=== PATIENT | male | born 1950 | race Caucasian/White ===

== ENCOUNTER 2020-03-18 06:46 | Outpatient (REF) | payer MEDICARE, SELFPAY | END 2020-03-18 06:47 | disposition home or self-care (01) | LOC: HO.MMNH1L 06:46 | PROVIDERS: Visit Provider Family Medicine | DX: T84.54XD Infection and inflammatory reaction due to internal left knee prosthesis, subsequent encounter (principal) ==

== ENCOUNTER 2020-03-19 07:06 | Outpatient (REF) | payer SELFPAY ==
[2020-03-19 07:14] LABS: MANUAL DIFF FLAG NO
[2020-03-19 07:33] LABS: Basophils Percent Auto 0.6 % (0-2); Eosinophils Absolute Auto 0.2 X10*3/uL (0.0-0.4); Hematocrit 38.7 % (42-52); Hemoglobin 12.8 g/dl (14.0-18.0); Imm Gran Abs Auto 0.03 X10*3/uL (0.00-0.03); Imm Gran Pct Auto 0.6 % (0.0-0.4); Lymphocytes Absolute Auto 0.9 X10*3/uL (1.2-4.9); Lymphocytes Percent Auto 17.1 % (20-40); Mean Corpuscular HGB Conc 33.1 g/dl (31.0-36.0); Mean Corpuscular Hemoglobin 33.2 pg (27.0-33.0); Mean Corpuscular Volume 100.3 fL (80-98); Mean Platelet Volume 10.7 fL (9.4-12.4); Monocytes Absolute Auto 0.5 X10*3/uL (0.1-1.2); Monocytes Percent Auto 9.6 % (2-11); Neutrophils Absolute Auto 3.5 X10*3/uL (2.0-8.3); Neutrophils Percent Auto 68.1 % (45-73); Platelet Count 214 X10*3/uL (160-400); Red Blood Count 3.86 X10*6/uL (4.60-5.80); Red Cell Distribution Width 12.4 % (11.0-16.0); White Blood Count 5.2 X10*3/uL (4.8-10.8)
[2020-03-19 08:04] LABS: Alanine Aminotransferase 9 U/L (0-40); Albumin Level 3.8 g/dL (3.5-5.0); Alkaline Phosphatase 100 U/L (39-117); Anion Gap 11 (12-20); Aspartate Amino Transferase 12 U/L (5-37); Bilirubin Total 0.3 mg/dL (0.0-1.0); Blood Urea Nitrogen 12 mg/dL (9-16); Calcium 8.7 mg/dL (8.4-10.2); Carbon Dioxide 31 mmol/L (22-29); Chloride 102 mmol/L (96-108); Estimated Glomerular Filt Rate > 60; Glucose Random 83 mg/dL (60-115); Potassium 4.5 mmol/l (3.3-5.1); Sodium 139 mmol/L (135-145); Total Protein 5.9 g/dL (6.5-8.0)
[2020-03-19 08:48] LABS: Vancomycin Trough 23.3 mcg/mL (10.0-20.0)
== END 2020-03-19 07:07 | disposition home or self-care (01) ==
LOC: HO.MMNH1L 07:06
PROVIDERS: Visit Provider Family Medicine
DX: T84.54XD Infection and inflammatory reaction due to internal left knee prosthesis, subsequent encounter (principal)
CPT/HCPCS: 36415; 80053; 80202; 85025

== ENCOUNTER 2020-03-22 07:52 | Outpatient (REF) | payer SELFPAY ==
[2020-03-22 19:54] LABS: Vancomycin Trough 17.8 mcg/mL (10.0-20.0)
== END 2020-03-22 07:53 | disposition home or self-care (01) ==
LOC: HO.MMNH1L 07:52
PROVIDERS: Visit Provider Family Medicine
DX: I10 Essential (primary) hypertension (principal)
CPT/HCPCS: 36415; 80202

== ENCOUNTER 2020-03-24 06:56 | Outpatient (REF) | payer SELFPAY ==
[2020-03-24 07:35] LABS: Basophils Percent Auto 0.3 % (0-2); Eosinophils Absolute Auto 0.3 X10*3/uL (0.0-0.4); Eosinophils Percent Auto 3.6 % (0-4); Hematocrit 39.4 % (42-52); Hemoglobin 13.1 g/dl (14.0-18.0); Imm Gran Abs Auto 0.06 X10*3/uL (0.00-0.03); Imm Gran Pct Auto 0.8 % (0.0-0.4); Lymphocytes Absolute Auto 0.9 X10*3/uL (1.2-4.9); Lymphocytes Percent Auto 12.9 % (20-40); MANUAL DIFF FLAG NO; Mean Corpuscular HGB Conc 33.2 g/dl (31.0-36.0); Mean Corpuscular Volume 99.2 fL (80-98); Mean Platelet Volume 10.6 fL (9.4-12.4); Monocytes Absolute Auto 0.6 X10*3/uL (0.1-1.2); Monocytes Percent Auto 8.9 % (2-11); Neutrophils Absolute Auto 5.3 X10*3/uL (2.0-8.3); Neutrophils Percent Auto 73.5 % (45-73); Platelet Count 182 X10*3/uL (160-400); Red Blood Count 3.97 X10*6/uL (4.60-5.80); Red Cell Distribution Width 12.3 % (11.0-16.0); White Blood Count 7.2 X10*3/uL (4.8-10.8)
[2020-03-24 08:03] LABS: Alanine Aminotransferase 10 U/L (0-40); Albumin Level 3.9 g/dL (3.5-5.0); Alkaline Phosphatase 99 U/L (39-117); Anion Gap 13 (12-20); Aspartate Amino Transferase 13 U/L (5-37); Bilirubin Total 0.4 mg/dL (0.0-1.0); Blood Urea Nitrogen 13 mg/dL (9-16); Calcium 8.8 mg/dL (8.4-10.2); Carbon Dioxide 31 mmol/L (22-29); Chloride 102 mmol/L (96-108); Estimated Glomerular Filt Rate > 60; Glucose Random 76 mg/dL (60-115); Potassium 4.6 mmol/l (3.3-5.1); Sodium 141 mmol/L (135-145); Total Protein 6.1 g/dL (6.5-8.0)
[2020-03-24 08:07] LABS: Vancomycin Trough 22.5 mcg/mL (10.0-20.0)
== END 2020-03-24 06:57 | disposition home or self-care (01) ==
LOC: HO.MMNH1L 06:56
PROVIDERS: Visit Provider Family Medicine
DX: T84.54XD Infection and inflammatory reaction due to internal left knee prosthesis, subsequent encounter (principal); Z51.81 Encounter for therapeutic drug level monitoring
CPT/HCPCS: 36415; 80053; 80202; 85025

== ENCOUNTER 2020-04-03 07:25 | Outpatient (REF) | payer MEDICARE, SELFPAY ==
[2020-04-03 19:31] LABS: MANUAL DIFF FLAG NO
[2020-04-03 19:37] LABS: Basophils Absolute Auto 0.1 X10*3/uL (0.0-0.2); Basophils Percent Auto 0.8 % (0-2); Eosinophils Absolute Auto 0.2 X10*3/uL (0.0-0.4); Hemoglobin 13.1 g/dl (14.0-18.0); Imm Gran Abs Auto 0.04 X10*3/uL (0.00-0.03); Imm Gran Pct Auto 0.7 % (0.0-0.4); Lymphocytes Percent Auto 16.5 % (20-40); Mean Corpuscular HGB Conc 32.8 g/dl (31.0-36.0); Mean Corpuscular Hemoglobin 32.2 pg (27.0-33.0); Mean Corpuscular Volume 98.3 fL (80-98); Mean Platelet Volume 10.3 fL (9.4-12.4); Monocytes Absolute Auto 0.7 X10*3/uL (0.1-1.2); Monocytes Percent Auto 12.1 % (2-11); Neutrophils Absolute Auto 3.9 X10*3/uL (2.0-8.3); Neutrophils Percent Auto 65.9 % (45-73); Platelet Count 259 X10*3/uL (160-400); Red Blood Count 4.07 X10*6/uL (4.60-5.80); Red Cell Distribution Width 11.8 % (11.0-16.0); White Blood Count 5.9 X10*3/uL (4.8-10.8)
[2020-04-03 20:03] LABS: Alanine Aminotransferase 8 U/L (0-40); Albumin Level 3.9 g/dL (3.5-5.0); Alkaline Phosphatase 103 U/L (39-117); Anion Gap 15 (12-20); Aspartate Amino Transferase 15 U/L (5-37); Bilirubin Total 0.4 mg/dL (0.0-1.0); Blood Urea Nitrogen 13 mg/dL (9-16); Calcium 8.7 mg/dL (8.4-10.2); Carbon Dioxide 25 mmol/L (22-29); Chloride 103 mmol/L (96-108); Estimated Glomerular Filt Rate > 60; Glucose Random 87 mg/dL (60-115); Potassium 5.1 mmol/l (3.3-5.1); Sodium 138 mmol/L (135-145); Total Protein 6.2 g/dL (6.5-8.0)
[2020-04-03 20:07] LABS: Vancomycin Trough 17.3 mcg/mL (10.0-20.0)
== END 2020-04-03 07:26 | disposition home or self-care (01) ==
LOC: HO.MMNH1L 07:25
PROVIDERS: Visit Provider Family Medicine
DX: Z51.81 Encounter for therapeutic drug level monitoring (principal); Z79.899 Other long term (current) drug therapy
CPT/HCPCS: 36415; 80053; 80202; 85025

== ENCOUNTER 2020-04-06 05:33 | Outpatient (REF) | payer SELFPAY ==
[2020-04-06 19:25] LABS: MANUAL DIFF FLAG NO
[2020-04-06 19:27] LABS: Basophils Absolute Auto 0.1 X10*3/uL (0.0-0.2); Basophils Percent Auto 0.8 % (0-2); Eosinophils Absolute Auto 0.2 X10*3/uL (0.0-0.4); Eosinophils Percent Auto 3.3 % (0-4); Hematocrit 39.2 % (42-52); Imm Gran Abs Auto 0.03 X10*3/uL (0.00-0.03); Imm Gran Pct Auto 0.5 % (0.0-0.4); Mean Corpuscular HGB Conc 33.2 g/dl (31.0-36.0); Mean Corpuscular Hemoglobin 32.7 pg (27.0-33.0); Mean Corpuscular Volume 98.7 fL (80-98); Monocytes Absolute Auto 0.7 X10*3/uL (0.1-1.2); Monocytes Percent Auto 10.6 % (2-11); Neutrophils Absolute Auto 4.2 X10*3/uL (2.0-8.3); Neutrophils Percent Auto 68.8 % (45-73); Platelet Count 250 X10*3/uL (160-400); Red Blood Count 3.97 X10*6/uL (4.60-5.80); Red Cell Distribution Width 11.8 % (11.0-16.0); White Blood Count 6.1 X10*3/uL (4.8-10.8)
[2020-04-06 20:02] LABS: Alanine Aminotransferase 7 U/L (0-40); Albumin Level 3.9 g/dL (3.5-5.0); Alkaline Phosphatase 99 U/L (39-117); Anion Gap 13 (12-20); Aspartate Amino Transferase 12 U/L (5-37); Bilirubin Total 0.2 mg/dL (0.0-1.0); Blood Urea Nitrogen 16 mg/dL (9-16); Calcium 8.9 mg/dL (8.4-10.2); Carbon Dioxide 29 mmol/L (22-29); Chloride 103 mmol/L (96-108); Estimated Glomerular Filt Rate > 60; Glucose Random 102 mg/dL (60-115); Potassium 5.1 mmol/l (3.3-5.1); Sodium 140 mmol/L (135-145); Total Protein 6.2 g/dL (6.5-8.0)
[2020-04-06 20:07] LABS: Vancomycin Trough 17.5 mcg/mL (10.0-20.0)
== END 2020-04-06 05:34 | disposition home or self-care (01) ==
LOC: HO.MMNH1L 05:33
PROVIDERS: Visit Provider Family Medicine
DX: I10 Essential (primary) hypertension (principal)
CPT/HCPCS: 36415; 80053; 80202; 85025

== ENCOUNTER 2020-04-07 06:58 | Outpatient (REF) | payer SELFPAY ==
[2020-04-07 07:04] LABS: MANUAL DIFF FLAG NO
[2020-04-07 07:37] LABS: Basophils Percent Auto 0.6 % (0-2); Eosinophils Absolute Auto 0.2 X10*3/uL (0.0-0.4); Eosinophils Percent Auto 4.4 % (0-4); Hematocrit 38.1 % (42-52); Hemoglobin 12.4 g/dl (14.0-18.0); Imm Gran Abs Auto 0.03 X10*3/uL (0.00-0.03); Imm Gran Pct Auto 0.6 % (0.0-0.4); Lymphocytes Absolute Auto 0.9 X10*3/uL (1.2-4.9); Lymphocytes Percent Auto 17.9 % (20-40); Mean Corpuscular HGB Conc 32.5 g/dl (31.0-36.0); Mean Corpuscular Hemoglobin 32.3 pg (27.0-33.0); Mean Corpuscular Volume 99.2 fL (80-98); Mean Platelet Volume 10.4 fL (9.4-12.4); Monocytes Absolute Auto 0.5 X10*3/uL (0.1-1.2); Monocytes Percent Auto 10.4 % (2-11); Neutrophils Absolute Auto 3.3 X10*3/uL (2.0-8.3); Neutrophils Percent Auto 66.1 % (45-73); Platelet Count 226 X10*3/uL (160-400); Red Blood Count 3.84 X10*6/uL (4.60-5.80); Red Cell Distribution Width 11.8 % (11.0-16.0)
[2020-04-07 07:58] LABS: Alanine Aminotransferase 6 U/L (0-40); Albumin Level 3.7 g/dL (3.5-5.0); Alkaline Phosphatase 88 U/L (39-117); Anion Gap 14 (12-20); Aspartate Amino Transferase 12 U/L (5-37); Bilirubin Total 0.2 mg/dL (0.0-1.0); Blood Urea Nitrogen 14 mg/dL (9-16); Calcium 8.9 mg/dL (8.4-10.2); Carbon Dioxide 29 mmol/L (22-29); Chloride 103 mmol/L (96-108); Estimated Glomerular Filt Rate > 60; Glucose Random 82 mg/dL (60-115); Sodium 141 mmol/L (135-145); Total Protein 5.9 g/dL (6.5-8.0)
[2020-04-07 08:21] LABS: Vancomycin Trough 18.1 mcg/mL (10.0-20.0)
== END 2020-04-07 06:59 | disposition home or self-care (01) ==
LOC: HO.MMNH1L 06:58
PROVIDERS: Visit Provider Family Medicine
DX: E78.5 Hyperlipidemia, unspecified (principal); I10 Essential (primary) hypertension; Z79.899 Other long term (current) drug therapy; A41.89 Other specified sepsis
CPT/HCPCS: 36415; 80053; 80202; 85025

== ENCOUNTER 2020-04-08 07:30 | Outpatient (REF) | payer SELFPAY ==
[2020-04-08 19:26] LABS: MANUAL DIFF FLAG NO
[2020-04-08 19:27] LABS: Basophils Percent Auto 0.7 % (0-2); Eosinophils Absolute Auto 0.2 X10*3/uL (0.0-0.4); Hematocrit 37.9 % (42-52); Hemoglobin 12.6 g/dl (14.0-18.0); Imm Gran Abs Auto 0.04 X10*3/uL (0.00-0.03); Imm Gran Pct Auto 0.7 % (0.0-0.4); Lymphocytes Percent Auto 16.4 % (20-40); Mean Corpuscular HGB Conc 33.2 g/dl (31.0-36.0); Mean Corpuscular Hemoglobin 32.7 pg (27.0-33.0); Mean Corpuscular Volume 98.4 fL (80-98); Mean Platelet Volume 10.3 fL (9.4-12.4); Monocytes Absolute Auto 0.7 X10*3/uL (0.1-1.2); Monocytes Percent Auto 10.8 % (2-11); Neutrophils Absolute Auto 4.1 X10*3/uL (2.0-8.3); Neutrophils Percent Auto 67.4 % (45-73); Platelet Count 234 X10*3/uL (160-400); Red Blood Count 3.85 X10*6/uL (4.60-5.80); Red Cell Distribution Width 11.9 % (11.0-16.0)
[2020-04-08 19:55] LABS: Alanine Aminotransferase 6 U/L (0-40); Albumin Level 3.9 g/dL (3.5-5.0); Alkaline Phosphatase 95 U/L (39-117); Anion Gap 14 (12-20); Aspartate Amino Transferase 12 U/L (5-37); Bilirubin Total 0.2 mg/dL (0.0-1.0); Blood Urea Nitrogen 16 mg/dL (9-16); Calcium 8.4 mg/dL (8.4-10.2); Carbon Dioxide 29 mmol/L (22-29); Chloride 103 mmol/L (96-108); Estimated Glomerular Filt Rate > 60; Glucose Random 94 mg/dL (60-115); Potassium 4.7 mmol/l (3.3-5.1); Sodium 141 mmol/L (135-145)
[2020-04-08 20:11] LABS: Vancomycin Trough 32.9 mcg/mL (10.0-20.0)
== END 2020-04-08 07:31 | disposition home or self-care (01) ==
LOC: HO.MMNH1L 07:30
PROVIDERS: Visit Provider Family Medicine
DX: Z79.899 Other long term (current) drug therapy (principal); T84.59XA Infection and inflammatory reaction due to other internal joint prosthesis, initial encounter; Z96.659 Presence of unspecified artificial knee joint
CPT/HCPCS: 36415; 80053; 80202; 85025; 99212

== ENCOUNTER 2020-04-09 10:53 | Outpatient (REF) | payer SELFPAY ==
[2020-04-09 11:49] LABS: Vancomycin Trough 12.4 mcg/mL (10.0-20.0)
== END 2020-04-09 10:54 | disposition home or self-care (01) ==
LOC: HO.MMNH1L 10:53
PROVIDERS: Visit Provider Family Medicine
DX: A41.9 Sepsis, unspecified organism (principal); Z79.2 Long term (current) use of antibiotics
CPT/HCPCS: 80202

== ENCOUNTER 2020-04-12 | Outpatient (REF) | payer MEDICARE, SELFPAY ==
[2020-04-12 08:43] LABS: Hematocrit 38.4 % (42-52); Hemoglobin 12.7 g/dl (14.0-18.0); Mean Corpuscular HGB Conc 33.1 g/dl (31.0-36.0); Mean Corpuscular Hemoglobin 32.7 pg (27.0-33.0); Mean Platelet Volume 10.6 fL (9.4-12.4); Platelet Count 187 X10*3/uL (160-400); Red Blood Count 3.88 X10*6/uL (4.60-5.80); Red Cell Distribution Width 11.8 % (11.0-16.0); White Blood Count 6.4 X10*3/uL (4.8-10.8)
[2020-04-12 10:09] LABS: Anion Gap 14 (12-20); Blood Urea Nitrogen 11 mg/dL (9-16); Calcium 8.4 mg/dL (8.4-10.2); Carbon Dioxide 29 mmol/L (22-29); Chloride 100 mmol/L (96-108); Estimated Glomerular Filt Rate > 60; Glucose Random 72 mg/dL (60-115); Potassium 4.2 mmol/l (3.3-5.1); Sodium 139 mmol/L (135-145)
== END 2020-04-12 00:01 | disposition home or self-care (01) ==
LOC: HO.MMNH1L
PROVIDERS: Visit Provider Family Medicine
DX: I10 Essential (primary) hypertension (principal); R56.9 Unspecified convulsions; M00.9 Pyogenic arthritis, unspecified
CPT/HCPCS: 36415; 80048; 85027

== ENCOUNTER 2020-05-06 09:43 | Outpatient (REF) | payer MEDICARE, SELFPAY ==
--- NOTE | 2020-05-06 09:44 | XR_ITS ---
EXAMINATION: XR KNEE, BILATERAL XR KNEE, LEFT CLINICAL INFORMATION: Infection and inflammatory reaction due to other internal joint prosthesis. COMPARISON: 02/24/2020 TECHNIQUE: AP standing view of both knees. Lateral and sunrise views of the left knee. FINDINGS: As before, left total knee prosthesis has been removed with antibiotic cement in place at the distal femur/proximal tibia. Alignment is unchanged. No acute fracture or malalignment. Soft tissue swelling surrounds the knee. No significant joint effusion. Evaluation of the patella is limited. The single view of the right knee shows no fracture or subluxation. Moderate medial compartment joint space narrowing. XR/XR knee standing BI IMPRESSION: Total knee prosthesis removal with antibiotic spacer in place. Unchanged alignment. Soft tissue swelling.
--- NOTE | 2020-05-06 09:44 | XR_ITS ---
EXAMINATION: XR KNEE, BILATERAL XR KNEE, LEFT CLINICAL INFORMATION: Infection and inflammatory reaction due to other internal joint prosthesis. COMPARISON: 02/24/2020 TECHNIQUE: AP standing view of both knees. Lateral and sunrise views of the left knee. FINDINGS: As before, left total knee prosthesis has been removed with antibiotic cement in place at the distal femur/proximal tibia. Alignment is unchanged. No acute fracture or malalignment. Soft tissue swelling surrounds the knee. No significant joint effusion. Evaluation of the patella is limited. The single view of the right knee shows no fracture or subluxation. Moderate medial compartment joint space narrowing. XR/XR knee LT 2V IMPRESSION: Total knee prosthesis removal with antibiotic spacer in place. Unchanged alignment. Soft tissue swelling.
--- NOTE | 2020-05-06 10:12 | ECG_ITS ---
Test Reason : PREPROC EXAM Blood Pressure : / mmHG Vent. Rate : 061 BPM Atrial Rate : 061 BPM P-R Int : 200 ms QRS Dur : 094 ms QT Int : 394 ms P-R-T Axes : -18 -39 041 degrees QTc Int : 396 ms Normal sinus rhythm Left axis deviation Abnormal ECG When compared with ECG of 11-FEB-2020 14:05, SC interval has decreased Referred By: Bruce Payan Electronically Signed By:AFSANEH MISHRA MD
== END 2020-05-06 09:44 | disposition home or self-care (01) ==
LOC: HO.HOSX 09:43
PROVIDERS: PCP Internal Medicine; Visit Provider Orthopaedic Surgery
DX: Z01.812 Encounter for preprocedural laboratory examination (principal); Z01.810 Encounter for preprocedural cardiovascular examination; T84.54XA Infection and inflammatory reaction due to internal left knee prosthesis, initial encounter; Z96.652 Presence of left artificial knee joint
CPT/HCPCS: 20610; 73560; 73565; 93005; 99212

== ENCOUNTER 2020-05-26 05:59 | Inpatient (IN) | payer MEDICARE, SELFPAY ==
[2020-05-06 10:43] LABS: MANUAL DIFF FLAG NO
[2020-05-06 10:50] LABS: Basophils Percent Auto 0.5 % (0-2); Eosinophils Absolute Auto 0.2 X10*3/uL (0.0-0.4); Eosinophils Percent Auto 3.2 % (0-4); Hematocrit 41.8 % (42-52); Hemoglobin 14.1 g/dl (14.0-18.0); Imm Gran Abs Auto 0.06 X10*3/uL (0.00-0.03); Imm Gran Pct Auto 1.1 % (0.0-0.4); Lymphocytes Absolute Auto 0.9 X10*3/uL (1.2-4.9); Lymphocytes Percent Auto 16.2 % (20-40); Mean Corpuscular HGB Conc 33.7 g/dl (31.0-36.0); Mean Corpuscular Hemoglobin 33.2 pg (27.0-33.0); Mean Corpuscular Volume 98.4 fL (80-98); Mean Platelet Volume 10.4 fL (9.4-12.4); Monocytes Absolute Auto 0.4 X10*3/uL (0.1-1.2); Monocytes Percent Auto 7.4 % (2-11); Neutrophils Percent Auto 71.6 % (45-73); Platelet Count 231 X10*3/uL (160-400); Red Blood Count 4.25 X10*6/uL (4.60-5.80); Red Cell Distribution Width 12.2 % (11.0-16.0); White Blood Count 5.6 X10*3/uL (4.8-10.8)
[2020-05-06 11:41] LABS: Erythrocyte Sedimentation Rate 13 MM/HR (0-15)
[2020-05-06 12:32] LABS: Anion Gap 13 (12-20); Blood Urea Nitrogen 19 mg/dL (9-16); C Reactive Protein 0.16 mg/dL (< or = 0.50); Calcium 9.1 mg/dL (8.4-10.2); Carbon Dioxide 27 mmol/L (22-29); Chloride 107 mmol/L (96-108); Estimated Glomerular Filt Rate > 60; Glucose Random 110 mg/dL (60-115); Potassium 4.7 mmol/l (3.3-5.1); Sodium 142 mmol/L (135-145)
[2020-05-12 09:57] VITALS: BMI 30.3
--- NOTE | 2020-05-12 13:07 | HO.ANESPROP2 ---
Documented by User: Sydni Mcgee 05/25/20 11:03 HPI - Anesthesia Eval Consult details Narrative: 70yo M for L TKA REVISION s/p L TKA 12/2018, REVISION 02/2020 with SPINAL/BLOCK PMFSH Past Medical History Medical History Arthritis Bilateral primary osteoarthritis of knee Elevated cholesterol Frequent headaches Hereditary hemochromatosis History of panic attacks History of skin cancer Hypertension Infection of total knee replacement Peripheral neuropathy Prostate cancer Family History Family History Mother No problems noted. Father No problems noted. Surgical History Surgical History History of prostate surgery History of total left knee replacement (TKR) Hx of colonoscopy Hx of left knee surgery Hx of prostatectomy Status post implantation of artificial urinary sphincter Social History Social History Are you a primary personal caregiver to a significant other at home: No Do you presently have visiting nurse or other home services: Yes Smoking Status: Former smoker Smoking Quit Date: AGe 40 Patient Interested in Nicotine Replacement: No Patient Given Instructions on How to Stop Smoking: No Second Hand Smoke Exposure: No Use of substances other than those prescribed or required for medical reasons: No Have you been hit, kicked, punched, or otherwise hurt by someone within the past year? If so, by whom?: No Advance Directives: Yes Advance Directives Information Provided: Yes Advance Directives on File: Yes Advance Directives Date on File: 03/18/20 Recently lost weight without trying: No Meds Allergies Allergy/AdvReac Type Severity Reaction Status Date / Time No Known Allergies Allergy Verified 05/26/20 07:02 [No Known Allergies*] Home Medications Medication Instructions Recorded Confirmed Type carbamazepine 200 mg 200 mg PO BID cap 04/07/20 05/17/20 History capsule,extended release [id number] celecoxib 200 mg capsule 200 mg PO DAILY 04/07/20 05/17/20 History gemfibrozil 600 mg tablet 600 mg PO BID 04/07/20 05/17/20 History lorazepam 0.5 mg tablet 0.5 mg PO BEDTIME PRN 04/08/20 05/17/20 History acetaminophen 325 mg PO TID 05/12/20 05/17/20 History aspirin 325 mg PO TID 05/12/20 05/17/20 History atenolol 100 mg PO DAILY 05/12/20 05/17/20 History carbamazepine 400 mg PO BEDTIME 05/12/20 05/17/20 History lovastatin 40 mg PO QPM 05/12/20 05/17/20 History Exam Exam Date and Time: May 12, 2020 1307 Height,Weight and Vital Signs: Height 6 ft 1 in Weight 104.326 kg Pertinent Lab Results Pertinent Lab Results: Laboratory Tests 05/06/20 05/06/20 05/06/20 10:35 10:35 10:35 WBC 5.6 RBC 4.25 L Hgb 14.1 Hct 41.8 L MCV 98.4 H MCH 33.2 H MCHC 33.7 RDW 12.2 Plt Count 231 MPV 10.4 Immature Gran % (Auto) 1.1 H Neut % (Auto) 71.6 Lymph % (Auto) 16.2 L Barber % (Auto) 7.4 Eos % (Auto) 3.2 Baso % (Auto) 0.5 Lymph # (Auto) 0.9 L Barber # (Auto) 0.4 Eos # (Auto) 0.2 Baso # (Auto) 0.0 Abs Immat Gran (auto) 0.06 H Absolute Neuts (auto) 4.0 Absolute Nucleated RBC 0.000 Nucleated RBC % (auto) 0.0 ESR 13 Sodium 142 Potassium 4.7 Chloride 107 Carbon Dioxide 27 Anion Gap 13 BUN 19 H D Creatinine 1.04 Estim Creat Clear Calc TNP Estimated GFR > 60 Random Glucose 110 D Calcium 9.1 D C-Reactive Protein 0.16 Blood Type Antibody Screen 05/06/20 10:35 WBC RBC Hgb Hct MCV MCH MCHC RDW Plt Count MPV Immature Gran % (Auto) Neut % (Auto) Lymph % (Auto) Barber % (Auto) Eos % (Auto) Baso % (Auto) Lymph # (Auto) Barber # (Auto) Eos # (Auto) Baso # (Auto) Abs Immat Gran (auto) Absolute Neuts (auto) Absolute Nucleated RBC Nucleated RBC % (auto) ESR Sodium Potassium Chloride Carbon Dioxide Anion Gap BUN Creatinine Estim Creat Clear Calc Estimated GFR Random Glucose Calcium C-Reactive Protein Blood Type O Positive Antibody Screen NEGATIVE Narrative Narrative: EKG 04/2020: Normal sinus rhythm @ 61, Left axis deviation Assessment and Plan Assessment Anesthesia Assessment: Chart Reviewed Documented by User: Chuck Davis MD 05/26/20 12:00 PMFSH Past Medical History Medical History Arthritis Bilateral primary osteoarthritis of knee Elevated cholesterol Frequent headaches Hereditary hemochromatosis History of panic attacks History of skin cancer Hypertension Infection of total knee replacement Peripheral neuropathy Prostate cancer Family History Family History Mother No problems noted. Father No problems noted. Surgical History Surgical History History of prostate surgery History of total left knee replacement (TKR) Hx of colonoscopy Hx of left knee surgery Hx of prostatectomy Status post implantation of artificial urinary sphincter Social History Social History Are you a primary personal caregiver to a significant other at home: No Do you presently have visiting nurse or other home services: Yes Smoking Status: Former smoker Smoking Quit Date: AGe 40 Patient Interested in Nicotine Replacement: No Patient Given Instructions on How to Stop Smoking: No Second Hand Smoke Exposure: No Use of substances other than those prescribed or required for medical reasons: No Have you been hit, kicked, punched, or otherwise hurt by someone within the past year? If so, by whom?: No Advance Directives: Yes Advance Directives Information Provided: Yes Advance Directives on File: Yes Advance Directives Date on File: 03/18/20 Recently lost weight without trying: No Meds Allergies Allergy/AdvReac Type Severity Reaction Status Date / Time No Known Allergies Allergy Verified 05/26/20 07:02 [No Known Allergies*] Home Medications Medication Instructions Recorded Confirmed Type carbamazepine 200 mg 200 mg PO BID cap 04/07/20 05/17/20 History capsule,extended release [id number] celecoxib 200 mg capsule 200 mg PO DAILY 04/07/20 05/17/20 History gemfibrozil 600 mg tablet 600 mg PO BID 04/07/20 05/17/20 History lorazepam 0.5 mg tablet 0.5 mg PO BEDTIME PRN 04/08/20 05/17/20 History acetaminophen 325 mg PO TID 05/12/20 05/17/20 History aspirin 325 mg PO TID 05/12/20 05/17/20 History atenolol 100 mg PO DAILY 05/12/20 05/17/20 History carbamazepine 400 mg PO BEDTIME 05/12/20 05/17/20 History lovastatin 40 mg PO QPM 05/12/20 05/17/20 History Exam Airway Mallampati Class: II TM Dist: >3cm Neck ROM: Full Loose/Missing/Broken Teeth: No Heart: rrr Lungs: nl Other: ao Assessment and Plan Assessment Anesthesia Assessment: Anesthesia Plan Discussed and Chart Reviewed Final Anesthetic Review NPO: Yes ASA Class: III Final Preanesthetic Review: No Changes in Pt Med Stat, Meds/Allgs Chart Reviewed, Consent Obtained/Reviewed and Anes Risks/Benef Reviewed Patient Risk: Intermediate Procedure Risk: Intermediate Anesthetic Plan Anesthetic Plan: MAC:, Spinal and Regional Block Disposition: Standard PACU
[2020-05-26] VITALS (18 sets, daily range): BP systolic 107–125; BP diastolic 60–80; PULSE 58–96; RESP 16–18; TEMP 36.2–39.1; O2SAT 94–100
[2020-05-26] MEDS: Lactated Ringers 1,000 ML 100 ML IVCONT (06:00)
[2020-05-26] MEDS: Gabapentin 600 MG TABLET PO (06:45)
[2020-05-26 06:58] LABS: COVID-19 Test Negative (Negative); IDNOW Serial# 9DD0AD1C
--- NOTE | 2020-05-26 07:26 | MHC.SHP ---
Pre-Procedural Eval Section A The patient is an INPATIENT: No Changes since office visit: Yes Patient answered all questions; No Cold of Flu in the past 2 weeks, No New Medical Problems and No Changes in Medication The History & Physical has been completed within 30 days and I have reviewed it.: Yes Section B Chief Complaint: Infection of Internal Joint Prosthesis Allergies: Allergies Allergy/AdvReac Type Severity Reaction Status Date / Time No Known Allergies Allergy Verified 05/26/20 07:02 [No Known Allergies*] Plan Patient has been examined and remains a candidate for the planned procedure
--- NOTE | 2020-05-26 10:42 | PM.OP ---
Brief Operative Note Date of Service: 05/26/20 Pre-op diagnosis: left knee prosthetic infection Post-op diagnosis: same Procedure: left knee revision arthroplasty Implants: Edwin triathalon revision 7 with 5 mm post augments, 5 mm medial and 10mm lateral with 6 tibia and 10mm lateral augment Surgeon: Bruce Payan MD Anesthesia: regional and spinal Estimated blood loss (mL): 150 Tourniquet time (min): 130 IV fluids (mL): 1,500 Urine output (mL): 0 Pathology: none sent Condition: stable Disposition: PACU
[2020-05-26] MEDS: Ketorolac Tromethamine 15 MG/ML VIAL IVPUSH (12:00)
[2020-05-26] MEDS: Acetaminophen 325 MG TABLET 650 MG PO ×3 (12:00→22:20)
[2020-05-26] MEDS: oxyCODONE HCl Immed Release 5 MG TABLET PO (12:00)
--- NOTE | 2020-05-26 12:21 | XR_ITS ---
EXAMINATION: XR KNEE, LEFT CLINICAL INFORMATION: Status post left knee total arthroplasty. COMPARISON: Radiographs dated 05/06/2020. TECHNIQUE: Four views of the left knee. FINDINGS: Prosthetic components of the revised left total knee arthroplasty are appropriately aligned. No periprosthetic fracture. Gas from recent surgery is present in the joint and surrounding soft tissues. A joint effusion is present. XR/XR knee LT 2V IMPRESSION: Appropriate alignment of a revised left total knee arthroplasty. There is no hardware failure or loosening.
[2020-05-26] MEDS: Dextrose 5 % and 0.45 % NaCl 1,000 ML 80 ML IVCONT (13:02)
--- NOTE | 2020-05-26 13:20 | PM.IMCN ---
History of Present Illness Data of Consult Service Date: 05/26/20 Requesting physician: Bruce Payan Primary Care Provider: Judd Alejandre MD HPI Reason for consult: htn 70-year-old male presented for elective left knee replacement. Patient has a history of infected left knee replacement status post spacer and IV antibiotics, now returning for elective replacement. patient is seen postop, feels well, denies chest pain, sob, fever, chills Review of Systems Review of Systems: Constitutional: Denies fever, denies Chills Eyes: denies blurry vision ENT: denies sore throat CVS: denies chest pain Respiratory: Denies dyspnea GI: no abdominal pain : denies dysuria MSK: denies neck pain Skin: denies rash Neuro: denies specific motor weakness Psych: denies suicidal ideation Endocrine: denies heat/cold intoleratnce Hematologic: denies easy bleeding Allergy: denies hives [facility] Medical History Arthritis Bilateral primary osteoarthritis of knee Elevated cholesterol Frequent headaches Hereditary hemochromatosis History of panic attacks History of skin cancer Hypertension Infection of total knee replacement Peripheral neuropathy Prostate cancer Family History Mother No problems noted. Father No problems noted. Surgical History History of prostate surgery History of total left knee replacement (TKR) Hx of colonoscopy Hx of left knee surgery Hx of prostatectomy Status post implantation of artificial urinary sphincter Social History Household Members: Spouse Housing: House Are you a primary home care administrator to a significant other at home: No Do you presently have visiting nurse or other home services: No Smoking Status: Never smoker Smoked in Last 30 Days: No Smoking Quit Date: AGe 40 Patient Interested in Nicotine Replacement: No Patient Given Instructions on How to Stop Smoking: No Second Hand Smoke Exposure: No Use of substances other than those prescribed or required for medical reasons: No Have you been hit, kicked, punched, or otherwise hurt by someone within the past year? If so, by whom?: No Do you feel safe in your current relationship?: No Is there a partner from a previous relationship who is making you feel unsafe now?: No Are you made to feel afraid or neglected: No Advance Directives: Yes Advance Directives Information Provided: Yes Advance Directives on File: Yes Advance Directives Date on File: 03/18/20 Recently lost weight without trying: No Meds Allergies Allergy/AdvReac Type Severity Reaction Status Date / Time No Known Allergies Allergy Verified 05/26/20 07:02 [No Known Allergies*] Home Medications Medication Instructions Recorded Confirmed Type carbamazepine 200 mg 200 mg PO BID cap 04/07/20 05/17/20 History capsule,extended release [id number] celecoxib 200 mg capsule 200 mg PO DAILY 04/07/20 05/17/20 History gemfibrozil 600 mg tablet 600 mg PO BID 04/07/20 05/17/20 History lorazepam 0.5 mg tablet 0.5 mg PO BEDTIME PRN 04/08/20 05/17/20 History acetaminophen 325 mg PO TID 05/12/20 05/17/20 History aspirin 325 mg PO TID 05/12/20 05/17/20 History atenolol 100 mg PO DAILY 05/12/20 05/17/20 History carbamazepine 400 mg PO BEDTIME 05/12/20 05/17/20 History lovastatin 40 mg PO QPM 05/12/20 05/17/20 History Physical Exam Vital Signs and Narrative: Vital Signs: Last Vital Signs Temp 97.2 F 05/26/20 11:56 Pulse 60 05/26/20 12:30 Resp 16 05/26/20 12:30 BP 125/70 05/26/20 12:30 Pulse Ox 100 05/26/20 12:30 Body Mass Index 30.3 General: no acute distress HEENT: atraumatic Neck: normal to visual inspection CVS: S1, S2, RRR Resp: CTA bilateral Chest: non tender GI: soft, non tender, non distended : no CVA tenderness Skin: no rashes Extremities: no edema Neuro: Oriented X3, grossly intact Psych: cooperative, Results Labs CBC and Chem 7: 05/06/20 10:35 05/06/20 10:35 Labs: Laboratory Results - last 24 hr 05/26/20 05/26/20 05:56 06:15 COVID-19 ([facility]) Negative COVID-19 Clin Com See Note Blood Type O Positive Antibody Screen NEGATIVE Imaging Radiologist's Impressions: Impressions Knee X-Ray 05/26/20 12:21 IMPRESSION: Appropriate alignment of a revised left total knee arthroplasty. There is no hardware failure or loosening. Assessment and Plan (1) Infection of total knee replacement: Status: Acute (2) Elevated cholesterol: Status: Acute (3) Hereditary hemochromatosis: Problem details: Therapeutic Phlebotomies every month Status: Acute (4) Hypertension: Status: Acute (5) Peripheral neuropathy: Status: Acute 70M presnted for elected left knee arthroplasty left knee arthroplasty plan per primary team htn atenolol peripheral neuropathy carbamazepine hld statin hereditery hemochromatosis stable, LFTs appear normal, avoid transfusion if possible
[2020-05-26] MEDS: HYDROcodone Bit/Acetam 5/325 TABLET 1 TAB PO (15:46)
[2020-05-26] MEDS: ondansetron HCL 4 MG/2 ML VIAL IVPUSH (19:35)
[2020-05-26] MEDS: Celecoxib 200 MG CAPSULE PO (20:41)
[2020-05-26] MEDS: oxyCODONE HCl ER 10 MG TAB.ER.12H PO (20:41)
[2020-05-26] MEDS: carBAMazepine ER 200 MG TAB.ER.12H PO (20:41)
[2020-05-26] MEDS: Pravastatin Sodium 40 MG TABLET PO (20:41)
[2020-05-26] MEDS: Docusate Sodium 100 MG CAPSULE PO (20:41)
[2020-05-26] MEDS: carBAMazepine ER 200 MG TAB.ER.12H 400 MG PO (20:42)
--- NOTE | 2020-05-26 23:38 | PC.NURSE ---
Late entry: 1718- pt stated that he was cold and shakey, a temp check was performed with a result of 98.1 and pt was given more blankets, Dr. Payan was made aware and no new orders were given at that time. 1913, pt vitals taken as scheduled and temperature had a result of 100.3. Dr. Payan made aware and tylenol 650mg was administered. Temperature was rechecked at 2039 with a result of 102.4. Cold packs were placed under armpits, back of neck and on L knee and temp was rechecked at 2099 with a result of 101.2. Dr. Cline was made aware at 2210 and stated to give another one time dose of tylenol 650mg. This dose was given around 2219 and a temperature recheck was done at 2244 with a result of 99.9. Dr. Cline was also made aware that there had been no physical changes to the L knee noted from start of shift at 1500, knee was still swollen with slight warmth. Passed onto oncoming nurse to continue to monitor.
[2020-05-27] VITALS (8 sets, daily range): BP systolic 109–129; BP diastolic 60–68; PULSE 67–87; RESP 16–19; TEMP 36.4–37.9; O2SAT 94–98; BMI 30.3
[2020-05-27] MEDS: Dextrose 5 % and 0.45 % NaCl 1,000 ML 80 ML IVCONT ×2 (02:07→14:30)
[2020-05-27] MEDS: HYDROcodone Bit/Acetam 5/325 TABLET 1 TAB PO ×4 (02:16→16:58)
[2020-05-27 06:36] LABS: MANUAL DIFF FLAG NO
[2020-05-27 06:53] LABS: Basophils Percent Auto 0.3 % (0-2); Eosinophils Absolute Auto 0.3 X10*3/uL (0.0-0.4); Eosinophils Percent Auto 2.9 % (0-4); Hematocrit 37.2 % (42-52); Hemoglobin 12.2 g/dl (14.0-18.0); Imm Gran Abs Auto 0.08 X10*3/uL (0.00-0.03); Imm Gran Pct Auto 0.7 % (0.0-0.4); Lymphocytes Absolute Auto 0.9 X10*3/uL (1.2-4.9); Lymphocytes Percent Auto 7.6 % (20-40); Mean Corpuscular HGB Conc 32.8 g/dl (31.0-36.0); Mean Corpuscular Hemoglobin 32.7 pg (27.0-33.0); Mean Corpuscular Volume 99.7 fL (80-98); Mean Platelet Volume 11.2 fL (9.4-12.4); Monocytes Percent Auto 9.2 % (2-11); Neutrophils Absolute Auto 8.8 X10*3/uL (2.0-8.3); Neutrophils Percent Auto 79.3 % (45-73); Platelet Count 148 X10*3/uL (160-400); Red Blood Count 3.73 X10*6/uL (4.60-5.80); Red Cell Distribution Width 12.8 % (11.0-16.0); White Blood Count 11.2 X10*3/uL (4.8-10.8)
[2020-05-27 07:14] LABS: Anion Gap 13 (12-20); Blood Urea Nitrogen 21 mg/dL (9-16); Calcium 8.3 mg/dL (8.4-10.2); Carbon Dioxide 26 mmol/L (22-29); Chloride 106 mmol/L (96-108); Estimated Glomerular Filt Rate > 60; Glucose Fasting 111 mg/dL (60-99); Potassium 4.7 mmol/l (3.3-5.1); Sodium 140 mmol/L (135-145)
[2020-05-27] MEDS: Celecoxib 200 MG CAPSULE PO ×2 (08:02→20:32)
[2020-05-27] MEDS: atenoloL 100 MG TABLET PO (08:03)
[2020-05-27] MEDS: carBAMazepine ER 200 MG TAB.ER.12H PO ×2 (08:04→20:32)
[2020-05-27] MEDS: oxyCODONE HCl ER 10 MG TAB.ER.12H PO ×2 (08:04→20:30)
[2020-05-27] MEDS: Docusate Sodium 100 MG CAPSULE PO ×2 (08:05→20:30)
--- NOTE | 2020-05-27 09:49 | HO.POSTANES ---
Post Anesthesia Evaluation Post Anesthesia Evaluation Vital Signs: Vital Signs Temp Pulse Resp BP Pulse Ox 05/27/20 07:51 99.7 F 75 19 129/66 96 05/27/20 04:00 97.6 F 87 18 127/68 95 05/26/20 23:47 98.8 F 80 18 107/62 94 05/26/20 22:45 99.9 F Anesthesia: Spinal Mental Status: Awake Pain Control: Satisfactory Nausea/Vomiting: None Hydration: Adequate Anesthesia-Related Issues: No Anes. Related Issues
--- NOTE | 2020-05-27 09:54 | HO.PM.IMPN ---
Subjective Subjective Date of Service: 05/27/20 Interval History: fever last night, otherwise well Cardiovascular Cardiovascular: Reports no additional cardiovascular complaints Respiratory Respiratory: Reports no additional respiratory complaints Physical Exam Vital Signs: Vital Signs: Last Vital Signs Temp 99.7 F 05/27/20 07:51 Pulse 75 05/27/20 07:51 Resp 19 05/27/20 07:51 BP 129/66 05/27/20 07:51 Pulse Ox 96 05/27/20 07:51 Body Mass Index 30.3 General: AO X 3, no acute distress Resp: CTA bilateral CVS: S1,S2,RRR GI: soft, non tender, non distended Neuro: motor grossly intact Psych: appropriate affect Objective Data Current Medications Generic Name Dose Route Start Last Admin Trade Name Freq PRN Reason Stop Dose Admin Acetaminophen 325 mg 05/26/20 12:21 Acetaminophen 325 Mg Tablet PO Q4H PRN Pain, Mild (Pain Scale 1-3) Acetaminophen 650 mg 05/26/20 12:21 05/26/20 19:35 Acetaminophen 325 Mg Tablet PO 650 mg Q6H PRN Administration Pain, Mild (Pain Scale 1-3) Hydrocodone Bitart/Acetaminophen 1 tab 05/26/20 12:21 05/27/20 06:17 Hydrocodone Bit/Acetam 5/325 Tablet PO 1 tab Q4H PRN Administration Pain, Moderate (Pain Scale 4-6 Aspirin 325 mg 05/27/20 10:00 Aspirin 325 Mg Tablet PO BID CAM Atenolol 100 mg 05/27/20 09:00 05/27/20 08:03 Atenolol 100 Mg Tablet PO 100 mg DAILY CAM Administration Protocol Carbamazepine 400 mg 05/26/20 21:00 05/26/20 20:42 Carbamazepine Er 200 Mg Tab.Er.12h PO 400 mg BEDTIME CAM Administration Carbamazepine 200 mg 05/26/20 21:00 05/27/20 08:04 Carbamazepine Er 200 Mg Tab.Er.12h PO 200 mg BID CAM Administration Celecoxib 200 mg 05/26/20 21:00 05/27/20 08:02 Celecoxib 200 Mg Capsule PO 200 mg BID CAM Administration Docusate Sodium 100 mg 05/26/20 21:00 05/27/20 08:05 Docusate Sodium 100 Mg Capsule PO 100 mg BID CAM Administration Hydromorphone HCl 0.25 mg 05/26/20 12:21 Hydromorphone Hcl 0.5 Mg/0.5 Ml Syringe IVPUSH Q4H PRN Pain, Severe (Pain Scale 7-10) Dextrose/Sodium Chloride 1,000 mls @ 80 mls/hr 05/26/20 12:21 05/27/20 02:07 D51/2ns IVCONT 80 mls/hr .[id number] CAM Administration Naloxone HCl 0.2 mg 05/26/20 12:21 Naloxone Hcl 0.4 Mg/Ml Vial IVPUSH Q2M PRN Excessive sedation or RR < 8 Ondansetron HCl 4 mg 05/26/20 11:56 Ondansetron Hcl 4 Mg/2 Ml Vial IVPUSH ONCE PRN Nausea and Vomiting Ondansetron HCl 4 mg 05/26/20 12:21 05/26/20 19:35 Ondansetron Hcl 4 Mg/2 Ml Vial IVPUSH 4 mg Q8H PRN Administration Nausea and Vomiting Oxycodone HCl 10 mg 05/26/20 21:00 05/27/20 08:04 Oxycodone Hcl Er 10 Mg Tab.Er.12h PO 10 mg BID CAM Administration Pravastatin Sodium 40 mg 05/26/20 21:00 05/26/20 20:41 Pravastatin Sodium 40 Mg Tablet PO 40 mg BEDTIME CAM Administration Senna 17.2 mg 05/26/20 12:21 Sennosides 8.6 Mg Tablet PO BEDTIME PRN Constipation Sodium Chloride 3 ml 05/26/20 16:00 05/27/20 08:02 0.9 % Sodium Chloride Flush 3 Ml Syringe IVFLUSH Not Given QSHIFT [facility] Labs CBC & Chem 7: 05/27/20 06:20 05/27/20 06:20 Assessment and Plan (1) Fever: Status: Acute (2) Hereditary hemochromatosis: Problem details: Therapeutic Phlebotomies every month Status: Acute (3) Hypertension: Status: Acute (4) Peripheral neuropathy: Status: Acute (5) Elevated cholesterol: Status: Acute (6) Infection of total knee replacement: Status: Acute Assessment and Plan: 70M presnted for elected left knee arthroplasty, had fever last night isolated fever monitor left knee arthroplasty pod 1 htn atenolol peripheral neuropathy carbamazepine hld statin hereditery hemochromatosis stable, LFTs appear normal, avoid transfusion if possible
--- NOTE | 2020-05-27 10:13 | PM.PNORT ---
Subjective Subjective Date of Service: 05/27/20 Interval history: POD 1 s/p Revision LT TKA No overnight events, resting in bed, has been out of bed to commode and walking around room without too much difficulty. Denies cp, SOb and dizziness. Physical Exam Vital Signs: Vital Signs: Last Vital Signs Temp 99.7 F 05/27/20 07:51 Pulse 75 05/27/20 07:51 Resp 19 05/27/20 07:51 BP 129/66 05/27/20 07:51 Pulse Ox 96 05/27/20 07:51 Body Mass Index 30.3 Const: General: cooperative, healthy appearing and no acute distress Resp: Effort & Inspection: normal respiratory effort and able to speak in complete sentences Cardio: Rate: regular rate Peripheral pulses: Peripheral pulses 2+ throughout GI: Inspection: Yes normal to inspection Palpation (GI): Soft to palpation Skin: General skin exam: no rashes or lesions noted Extrem: Other: Left knee prevena intact, no erythema, mild edema, sensation intact Progress Note: A&P Assessment and plan (1) Status post revision of total replacement of left knee: Status: Acute Assessment and Plan: Continue pain mgmnt Begin asa dvt ppx begin PT for LT TKA Dispo planning-Pending PT eval, pain mgmnt Fall Risk Details Current Medications: Current Medications Generic Name Dose Route Start Last Admin Trade Name Freq PRN Reason Stop Dose Admin Acetaminophen 325 mg 05/26/20 12:21 Acetaminophen 325 Mg Tablet PO Q4H PRN Pain, Mild (Pain Scale 1-3) Acetaminophen 650 mg 05/26/20 12:21 05/26/20 19:35 Acetaminophen 325 Mg Tablet PO 650 mg Q6H PRN Administration Pain, Mild (Pain Scale 1-3) Hydrocodone Bitart/Acetaminophen 1 tab 05/26/20 12:21 05/27/20 06:17 Hydrocodone Bit/Acetam 5/325 Tablet PO 1 tab Q4H PRN Administration Pain, Moderate (Pain Scale 4-6 Aspirin 325 mg 05/27/20 10:00 Aspirin 325 Mg Tablet PO BID [facility] Atenolol 100 mg 05/27/20 09:00 05/27/20 08:03 Atenolol 100 Mg Tablet PO 100 mg DAILY [facility] Administration Protocol Carbamazepine 400 mg 05/26/20 21:00 05/26/20 20:42 Carbamazepine Er 200 Mg Tab.Er.12h PO 400 mg BEDTIME CAM Administration Carbamazepine 200 mg 05/26/20 21:00 05/27/20 08:04 Carbamazepine Er 200 Mg Tab.Er.12h PO 200 mg BID CAM Administration Celecoxib 200 mg 05/26/20 21:00 05/27/20 08:02 Celecoxib 200 Mg Capsule PO 200 mg BID CAM Administration Docusate Sodium 100 mg 05/26/20 21:00 05/27/20 08:05 Docusate Sodium 100 Mg Capsule PO 100 mg BID CAM Administration Hydromorphone HCl 0.25 mg 05/26/20 12:21 Hydromorphone Hcl 0.5 Mg/0.5 Ml Syringe IVPUSH Q4H PRN Pain, Severe (Pain Scale 7-10) Dextrose/Sodium Chloride 1,000 mls @ 80 mls/hr 05/26/20 12:21 05/27/20 02:07 D51/2ns IVCONT 80 mls/hr .[id number] CAM Administration Naloxone HCl 0.2 mg 05/26/20 12:21 Naloxone Hcl 0.4 Mg/Ml Vial IVPUSH Q2M PRN Excessive sedation or RR < 8 Ondansetron HCl 4 mg 05/26/20 11:56 Ondansetron Hcl 4 Mg/2 Ml Vial IVPUSH ONCE PRN Nausea and Vomiting Ondansetron HCl 4 mg 05/26/20 12:21 05/26/20 19:35 Ondansetron Hcl 4 Mg/2 Ml Vial IVPUSH 4 mg Q8H PRN Administration Nausea and Vomiting Oxycodone HCl 10 mg 05/26/20 21:00 05/27/20 08:04 Oxycodone Hcl Er 10 Mg Tab.Er.12h PO 10 mg BID CAM Administration Pravastatin Sodium 40 mg 05/26/20 21:00 05/26/20 20:41 Pravastatin Sodium 40 Mg Tablet PO 40 mg BEDTIME CAM Administration Senna 17.2 mg 05/26/20 12:21 Sennosides 8.6 Mg Tablet PO BEDTIME PRN Constipation Sodium Chloride 3 ml 05/26/20 16:00 05/27/20 08:02 0.9 % Sodium Chloride Flush 3 Ml Syringe IVFLUSH Not Given QSHIFT [facility] Time Spent With Patient Time: Total time spent is greater than 50% in coordination of care (as documented) at patient's floor/unit and/or counseling patient: Time with patient: 15 - 24 minutes
[2020-05-27] MEDS: Aspirin 325 MG TABLET PO ×2 (10:51→20:30)
--- NOTE | 2020-05-27 14:04 | MHC.CM.PN ---
ADMITTED S/P L KNEE REVISION OF ARTHROSCOPY, D/C PLAN HOME VS HOME W/[facility]NA SERVICES. TO TRANSPORT HOME. PT HAS [facility] W[facility]LY BP & MED MANAGEMENT, PT PREFERS TO NOT HAVE THEM IN THE HOUSE FOR A FEW WEEKS ONCE HE IS DISCHARGED D/T BEING AFRAID OF VNA BEING IN COVID + PTS HOMES AND THEN COMING TO HIS, HAS CONCERNS HIS WOULD GET SICK. CONCERNED ABOUT MANAGING STAIRS AT HOME, PT WORKING W/PATIENT ON THIS AT TIME OF THIS NOTE.
[2020-05-27] MEDS: LORazepam 0.5 MG TABLET PO (16:49)
[2020-05-27] MEDS: Pravastatin Sodium 40 MG TABLET PO (20:31)
[2020-05-27] MEDS: carBAMazepine ER 200 MG TAB.ER.12H 400 MG PO (20:31)
[2020-05-28] VITALS (7 sets, daily range): BP systolic 120–138; BP diastolic 64–73; PULSE 62–73; RESP 14–19; TEMP 36.3–36.9; O2SAT 95–100
[2020-05-28] MEDS: Dextrose 5 % and 0.45 % NaCl 1,000 ML 80 ML IVCONT (00:20)
[2020-05-28] MEDS: HYDROcodone Bit/Acetam 5/325 TABLET 1 TAB PO ×2 (05:34→11:17)
[2020-05-28 07:03] LABS: Basophils Percent Auto 0.3 % (0-2); Eosinophils Percent Auto 3.8 % (0-4); MANUAL DIFF FLAG SCAN; PLT CLUMP 1; Red Blood Count 3.45 X10*6/uL (4.60-5.80); SCAN SMEAR FLAG 1
[2020-05-28 07:05] LABS: Eosinophils Absolute Auto 0.4 X10*3/uL (0.0-0.4); Hematocrit 33.8 % (42-52); Hemoglobin 11.4 g/dl (14.0-18.0); Imm Gran Abs Auto 0.07 X10*3/uL (0.00-0.03); Imm Gran Pct Auto 0.7 % (0.0-0.4); Lymphocytes Absolute Auto 0.9 X10*3/uL (1.2-4.9); Lymphocytes Percent Auto 8.8 % (20-40); Mean Corpuscular HGB Conc 33.7 g/dl (31.0-36.0); Mean Platelet Volume 11.5 fL (9.4-12.4); Monocytes Percent Auto 9.7 % (2-11); Neutrophils Absolute Auto 7.5 X10*3/uL (2.0-8.3); Neutrophils Percent Auto 76.7 % (45-73); Platelet Count 134 X10*3/uL (160-400); Red Cell Distribution Width 12.7 % (11.0-16.0); White Blood Count 9.8 X10*3/uL (4.8-10.8)
[2020-05-28 07:28] LABS: Anion Gap 13 (12-20); Blood Urea Nitrogen 13 mg/dL (9-16); Calcium 8.4 mg/dL (8.4-10.2); Carbon Dioxide 27 mmol/L (22-29); Chloride 104 mmol/L (96-108); Creatinine Clr Calc Pharmacy 108.5; Estimated Glomerular Filt Rate > 60; Glucose Fasting 99 mg/dL (60-99); Potassium 4.5 mmol/l (3.3-5.1); Sodium 139 mmol/L (135-145)
--- NOTE | 2020-05-28 08:55 | PM.PNORT ---
Subjective Subjective Date of Service: 05/28/20 Principal diagnosis: Revision LT TKA Interval history: POD 2 s/p Revision LT TKA-No acute infection No overnight events, resting in bed, doing well with pain control and PT. No concerns. Physical Exam Vital Signs: Vital Signs: Last Vital Signs Temp 97.4 F 05/28/20 08:00 Pulse 73 05/28/20 08:46 Resp 15 05/28/20 08:00 BP 138/68 05/28/20 08:46 Pulse Ox 100 05/28/20 08:46 Body Mass Index 30.3 Const: General: cooperative, healthy appearing and no acute distress Resp: Effort & Inspection: normal respiratory effort and able to speak in complete sentences Cardio: Rate: regular rate Peripheral pulses: Peripheral pulses 2+ throughout GI: Inspection: Yes normal to inspection Palpation (GI): Soft to palpation Skin: General skin exam: no rashes or lesions noted Extrem: Other: Left knee prevena dressing intact. no erythema, mild edema, ROM 0-75, calf supple non tender Progress Note: A&P Assessment and plan (1) Status post revision of total replacement of left knee: Status: Acute Assessment and Plan: Continue pain mgmnt cont dvt ppx cont PT for LT TKA Dispo planning-Home with VNA Fall Risk Details Current Medications: Current Medications Generic Name Dose Route Start Last Admin Trade Name Freq PRN Reason Stop Dose Admin Acetaminophen 325 mg 05/26/20 12:21 Acetaminophen 325 Mg Tablet PO Q4H PRN Pain, Mild (Pain Scale 1-3) Acetaminophen 650 mg 05/26/20 12:21 05/26/20 19:35 Acetaminophen 325 Mg Tablet PO 650 mg Q6H PRN Administration Pain, Mild (Pain Scale 1-3) Hydrocodone Bitart/Acetaminophen 1 tab 05/26/20 12:21 05/28/20 05:34 Hydrocodone Bit/Acetam 5/325 Tablet PO 1 tab Q4H PRN Administration Pain, Moderate (Pain Scale 4-6 Aspirin 325 mg 05/27/20 10:00 05/27/20 20:30 Aspirin 325 Mg Tablet PO 325 mg BID CAM Administration Atenolol 100 mg 05/27/20 09:00 05/27/20 08:03 Atenolol 100 Mg Tablet PO 100 mg DAILY CAM Administration Protocol Carbamazepine 400 mg 05/26/20 21:00 05/27/20 20:31 Carbamazepine Er 200 Mg Tab.Er.12h PO 400 mg BEDTIME CAM Administration Carbamazepine 200 mg 05/26/20 21:00 05/27/20 20:32 Carbamazepine Er 200 Mg Tab.Er.12h PO 200 mg BID CAM Administration Celecoxib 200 mg 05/26/20 21:00 05/27/20 20:32 Celecoxib 200 Mg Capsule PO 200 mg BID CAM Administration Docusate Sodium 100 mg 05/26/20 21:00 05/27/20 20:30 Docusate Sodium 100 Mg Capsule PO 100 mg BID ACM Administration Hydromorphone HCl 0.25 mg 05/26/20 12:21 Hydromorphone Hcl 0.5 Mg/0.5 Ml Syringe IVPUSH Q4H PRN Pain, Severe (Pain Scale 7-10) Dextrose/Sodium Chloride 1,000 mls @ 80 mls/hr 05/26/20 12:21 05/28/20 00:20 D51/2ns IVCONT 80 mls/hr .[id number] CAM Administration Lorazepam 0.5 mg 05/27/20 16:39 05/27/20 16:49 Lorazepam 0.5 Mg Tablet PO 0.5 mg Q8H PRN Administration anxiety Naloxone HCl 0.2 mg 05/26/20 12:21 Naloxone Hcl 0.4 Mg/Ml Vial IVPUSH Q2M PRN Excessive sedation or RR < 8 Ondansetron HCl 4 mg 05/26/20 11:56 Ondansetron Hcl 4 Mg/2 Ml Vial IVPUSH ONCE PRN Nausea and Vomiting Ondansetron HCl 4 mg 05/26/20 12:21 05/26/20 19:35 Ondansetron Hcl 4 Mg/2 Ml Vial IVPUSH 4 mg Q8H PRN Administration Nausea and Vomiting Oxycodone HCl 10 mg 05/26/20 21:00 05/27/20 20:30 Oxycodone Hcl Er 10 Mg Tab.Er.12h PO 10 mg BID CAM Administration Pravastatin Sodium 40 mg 05/26/20 21:00 05/27/20 20:31 Pravastatin Sodium 40 Mg Tablet PO 40 mg BEDTIME CAM Administration Senna 17.2 mg 05/26/20 12:21 Sennosides 8.6 Mg Tablet PO BEDTIME PRN Constipation Sodium Chloride 3 ml 05/26/20 16:00 05/28/20 00:21 0.9 % Sodium Chloride Flush 3 Ml Syringe IVFLUSH Not Given QSHIFT CAM Time Spent With Patient Time: Total time spent is greater than 50% in coordination of care (as documented) at patient's floor/unit and/or counseling patient: Time with patient: 15 - 24 minutes
--- NOTE | 2020-05-28 08:57 | P.DS_ITS ---
DS: Providers Provider Date of admission: 05/26/20 05:59 Primary care physician: Judd Alejandre MD Consults: 05/26/20 12:21 Consult to Hospitalist Routine Consulting Provider: Hospitalist Reason for consultation: medical management DS: Diagnosis Discharge Diagnosis (1) Status post revision of total replacement of left knee: Status: Acute Problem details: Mr Johnson is a 70-year-old gentleman who underwent a left total knee arthrop lasty approximately 18 months ago and developed an infection in the left knee. He underwent a removal arthroplasty and placement of an antibiotic spacer of the left knee approximately 3 months ago, he was on IV antibiotics and further workup and joint aspiration concluded no active infection. Therefore the decision was made for revision left total knee arthroplasty. DS: Medications Discharge Medications Home Medications: Home Medications Medication Instructions Recorded Confirmed carbamazepine 200 mg 200 mg PO BID cap 04/07/20 05/17/20 capsule,extended release [id number] gemfibrozil 600 mg tablet 600 mg PO BID 04/07/20 05/17/20 lorazepam 0.5 mg tablet 0.5 mg PO BEDTIME PRN 04/08/20 05/17/20 atenolol 100 mg PO DAILY 05/12/20 05/17/20 carbamazepine 400 mg PO BEDTIME 05/12/20 05/17/20 lovastatin 40 mg PO QPM 05/12/20 05/17/20 Previous Rx's Medication Instructions Recorded acetaminophen 650 mg PO Q6H PRN 30 Days #240 tab 05/28/20 aspirin 325 mg PO BID 14 Days #28 tab 05/28/20 celecoxib 200 mg PO BID 30 Days #60 cap 05/28/20 docusate sodium 100 mg PO BID 30 Days #60 cap 05/28/20 hydrocodone-acetaminophen 1 tab PO Q4H PRN 7 Days #42 tab 05/28/20 DS: Summary Hospital Course Hospital Course: The patient underwent a successful revision left total knee arthroplasty he was transferred to PACU and then to the floor where he recovered during his stay his vitals were stable afebrile at 97.4 and his labs were unremarkable hemoglobin 11.4 and hematocrit 33.8. Postop day 1 he was started back on his aspirin 325 mg p.o. b.i.d. for DVT prophylaxis and he also received physical therapy services twice a day. Prior to discharge his Prevena dressing remains intact, this will be switched over to the home unit and he will be discharged home with VNA services. Time Spent with Patient Time attestation: Total time spent providing and/or coordinating discharge services: Physical Exam Vital Signs: Vital Signs: Last Vital Signs Temp 97.4 F 05/28/20 08:00 Pulse 73 05/28/20 08:46 Resp 15 05/28/20 08:00 BP 138/68 05/28/20 08:46 Pulse Ox 100 05/28/20 08:46 Body Mass Index 30.3 Const: General: cooperative, healthy appearing and no acute distress Resp: Effort & Inspection: normal respiratory effort and able to speak in complete sentences Cardio: Rate: regular rate Peripheral pulses: Peripheral pulses 2+ throughout GI: Inspection: Yes normal to inspection Palpation (GI): Soft to palpation Skin: General skin exam: no rashes or lesions noted Extrem: Other: Left knee Prevena intact. No erythema, mild swelling. Calf supple nontender. DS: Data Data Completed and Pending Labs on day of discharge: 05/06/20 10:35 Type and Screen Routine Basic Metabolic Panel Routine C Reactive Protein Routine Complete Blood Count Auto Diff Routine Erythrocyte Sedimentation Rate Routine 05/26/20 05:53 Gabapentin [Neurontin] 600 mg PO PREOP ONE vancomycin HCL 1,500 mg 0.9 % Sodium Chloride [Ns] 250 ml IV PREOP 05/26/20 05:53 Providone-Iodine Solution 5% nasal swab .Both Nares x2 pre-op 05/26/20 05:56 COVID-19 ID NOW ([facility]) Stat 05/26/20 06:00 Lactated Ringers [Lr] 1,000 ml IVCONT 100 mls/hr 05/26/20 06:15 Type and Screen Stat 05/26/20 06:42 Gabapentin [Neurontin] 300 mg .ROUTE .STK-MED ONE 05/26/20 07:17 Bupivacaine MPF 0.5 % [Sensorcaine MPF 0.5% 30 ML] 30 ml .ROUTE .STK-MED ONE Midazolam HCl/PF [Versed] 2 mg .ROUTE .STK-MED ONE 05/26/20 07:18 Lidocaine HCl 2 % MPF [Xylocaine 2 % MPF] 5 ml .ROUTE .STK-MED ONE 05/26/20 08:00 Tranexamic Acid [Cyklokapron] 1,000 mg .ROUTE .STK-MED ONE 05/26/20 09:34 propofoL [Diprivan] 200 mg IVPUSH .STK-MED ONE 05/26/20 10:12 Tranexamic Acid [Cyklokapron] 1,000 mg .ROUTE .STK-MED ONE 05/26/20 10:14 fentaNYL citrate/PF [Sublimaze] 50 mcg .ROUTE .STK-MED ONE 05/26/20 10:55 Transfer Order Routine 05/26/20 11:55 Vital Signs Q1H Vital Signs Q5MIN Acetaminophen [Tylenol] 650 mg PO ONCE PRN Ketorolac Tromethamine [Toradol] 15 mg IVPUSH ONCE PRN oxyCODONE HCl Immed Release [Roxicodone] 5 mg PO ONCE PRN 05/26/20 12:21 XR knee LT 2V Stat 05/26/20 18:00 vancomycin HCL 1,500 mg 0.9 % Sodium Chloride [Ns] 250 ml IV ONCE@1800 05/26/20 18:07 vancomycin HCL 750 mg IV .STK-MED ONE 05/26/20 22:15 Acetaminophen [Tylenol] 650 mg PO ONCE ONE 05/27/20 06:20 Basic Metabolic Panel Fasting DAILY@0600 Complete Blood Count Auto Diff DAILY@0600 05/28/20 05:47 Basic Metabolic Panel Fasting DAILY@0600 Complete Blood Count Auto Diff DAILY@0600 SLIDE REVIEW Routine Laboratory Last Values WBC 9.8 X10*3/uL (4.8-10.8) 05/28/20 05:47 RBC 3.45 X10*6/uL (4.60-5.80) L 05/28/20 05:47 Hgb 11.4 g/dl (14.0-18.0) L 05/28/20 05:47 Hct 33.8 % (42-52) L 05/28/20 05:47 MCV 98.0 fL (80-98) 05/28/20 05:47 MCH 33.0 pg (27.0-33.0) 05/28/20 05:47 MCHC 33.7 g/dl (31.0-36.0) 05/28/20 05:47 RDW 12.7 % (11.0-16.0) 05/28/20 05:47 Plt Count 134 X10*3/uL (160-400) L 05/28/20 05:47 MPV 11.5 fL (9.4-12.4) 05/28/20 05:47 Immature Gran % (Auto) 0.7 % (0.0-0.4) H 05/28/20 05:47 Neut % (Auto) 76.7 % (45-73) H 05/28/20 05:47 Lymph % (Auto) 8.8 % (20-40) L 05/28/20 05:47 [place] % (Auto) 9.7 % (2-11) 05/28/20 05:47 Eos % (Auto) 3.8 % (0-4) 05/28/20 05:47 Baso % (Auto) 0.3 % (0-2) 05/28/20 05:47 Lymph # (Auto) 0.9 X10*3/uL (1.2-4.9) L 05/28/20 05:47 [place] # (Auto) 1.0 X10*3/uL (0.1-1.2) 05/28/20 05:47 Eos # (Auto) 0.4 X10*3/uL (0.0-0.4) 05/28/20 05:47 Baso # (Auto) 0.0 X10*3/uL (0.0-0.2) 05/28/20 05:47 Abs Immat Gran (auto) 0.07 X10*3/uL (0.00-0.03) H 05/28/20 05:47 Absolute Neuts (auto) 7.5 X10*3/uL (2.0-8.3) 05/28/20 05:47 Absolute Nucleated RBC 0.000 X10*3/uL (0.0-0.012) 05/28/20 05:47 Nucleated RBC % (auto) 0.0 /100WBC (0.0-0.2) 05/28/20 05:47 Smear Tech's Comments Not Reportable 05/28/20 05:47 ESR 13 MM/HR (0-15) 05/06/20 10:35 Sodium 139 mmol/L (135-145) 05/28/20 05:47 Potassium 4.5 mmol/l (3.3-5.1) 05/28/20 05:47 Chloride 104 mmol/L (96-108) 05/28/20 05:47 Carbon Dioxide 27 mmol/L (22-29) 05/28/20 05:47 Anion Gap 13 (-20) 05/28/20 05:47 BUN 13 mg/dL (9-16) 05/28/20 05:47 Creatinine 0.78 mg/dL (0.5-1.4) 05/28/20 05:47 Estim Creat Clear Calc 108.5 05/28/20 05:47 Estimated GFR > 60 05/28/20 05:47 Random Glucose 110 mg/dL (60-115) D 05/06/20 10:35 Fasting Glucose 99 mg/dL (60-99) 05/28/20 05:47 Calcium 8.4 mg/dL (8.4-10.2) 05/28/20 05:47 C-Reactive Protein 0.16 mg/dL (< or = 0.50) 05/06/20 10:35 COVID-19 (TERRY) Negative (Negative) 05/26/20 05:56 COVID-19 Clin Com See Note 05/26/20 05:56 Blood Type O Positive 05/26/20 06:15 Antibody Screen NEGATIVE 05/26/20 06:15 Discharge Plan Discharge Patient Disposition: Home Health Service Referrals: Rebecca Dumont PA-C [Physician [employer]] - (1 wk s/p surgery) Discharge Medications: New celecoxib 200 mg Capsule 200 mg PO BID 30 Days Qty: 60 RF: 0 acetaminophen 325 mg Tablet 650 mg PO Q6H PRN (Reason: Pain, Mild (Pain Scale 1-3)) 30 Days Qty: 240 RF: 0 aspirin 325 mg Tablet 325 mg PO BID 14 Days Qty: 28 RF: 0 hydrocodone-acetaminophen 5-325 mg Tablet 1 tab PO Q4H PRN (Reason: Pain, Moderate (Pain Scale 4-6) 7 Days Qty: 42 RF: 0 docusate sodium 100 mg Capsule 100 mg PO BID 30 Days Qty: 60 RF: 0 Continued atenolol 100 mg Tablet 100 mg PO DAILY RF: 0 carbamazepine 400 mg Tablet Extended Release 12 Hr 400 mg PO BEDTIME RF: 0 lovastatin 40 mg Tablet 40 mg PO QPM RF: 0 gemfibrozil 600 mg tablet 600 mg PO BID RF: 0 carbamazepine 200 mg capsule, ER multiphase 12 hr 200 mg PO BID RF: 0 lorazepam [Ativan] 0.5 mg tablet 0.5 mg PO BEDTIME PRN (Reason: Anxiety) RF: 0 Discontinued aspirin 325 mg Tablet 325 mg PO TID RF: 0 acetaminophen 325 mg Capsule 325 mg PO TID RF: 0 celecoxib [Celebrex] 200 mg capsule 200 mg PO DAILY RF: 0 Discharge Orders: Discharge Order (Routine); Ordered 05/28/20 Ordered By: Rebecca Dumont Diet: regular diet Activity on Discharge: Use cane or walker Activity Restrictions/Additional Instructions: * Physical Therapy for ROM 0-120, quad strength, gait training . Use walker for ambulation * Limit stair climbing, No shower, No tub bath, No driving * Continue aspirin x 14 days * Keep Prevena dressing clean, dry and intact. * Follow up with orthopedics in 1 week Visit Report Forms: Patient Portal Discharge page Care Plan Goals: Restore function of left knee Health Concerns: none Plan of Treatment: Physical Therapy Pain management DVT prophylaxis
[2020-05-28] MEDS: Aspirin 325 MG TABLET PO (09:38)
[2020-05-28] MEDS: oxyCODONE HCl ER 10 MG TAB.ER.12H PO (09:39)
[2020-05-28] MEDS: atenoloL 100 MG TABLET PO (09:40)
[2020-05-28] MEDS: Docusate Sodium 100 MG CAPSULE PO (09:40)
--- NOTE | 2020-05-28 09:40 | HO.PM.IMPN ---
Subjective Subjective Date of Service: 05/28/20 Interval History: feels well Cardiovascular Cardiovascular: Reports no additional cardiovascular complaints Respiratory Respiratory: Reports no additional respiratory complaints Physical Exam Vital Signs: Vital Signs: Last Vital Signs Temp 97.4 F 05/28/20 08:00 Pulse 73 05/28/20 08:46 Resp 15 05/28/20 08:00 BP 138/68 05/28/20 08:46 Pulse Ox 100 05/28/20 08:46 Body Mass Index 30.3 General: AO X 3, no acute distress Resp: CTA bilateral CVS: S1,S2,RRR GI: soft, non tender, non distended Neuro: motor grossly intact Psych: appropriate affect Objective Data Current Medications Generic Name Dose Route Start Last Admin Trade Name Freq PRN Reason Stop Dose Admin Acetaminophen 325 mg 05/26/20 12:21 Acetaminophen 325 Mg Tablet PO Q4H PRN Pain, Mild (Pain Scale 1-3) Acetaminophen 650 mg 05/26/20 12:21 05/26/20 19:35 Acetaminophen 325 Mg Tablet PO 650 mg Q6H PRN Administration Pain, Mild (Pain Scale 1-3) Hydrocodone Bitart/Acetaminophen 1 tab 05/26/20 12:21 05/28/20 05:34 Hydrocodone Bit/Acetam 5/325 Tablet PO 1 tab Q4H PRN Administration Pain, Moderate (Pain Scale 4-6 Aspirin 325 mg 05/27/20 10:00 05/27/20 20:30 Aspirin 325 Mg Tablet PO 325 mg BID CAM Administration Atenolol 100 mg 05/27/20 09:00 05/27/20 08:03 Atenolol 100 Mg Tablet PO 100 mg DAILY CAM Administration Protocol Carbamazepine 400 mg 05/26/20 21:00 05/27/20 20:31 Carbamazepine Er 200 Mg Tab.Er.12h PO 400 mg BEDTIME CAM Administration Carbamazepine 200 mg 05/26/20 21:00 05/27/20 20:32 Carbamazepine Er 200 Mg Tab.Er.12h PO 200 mg BID CAM Administration Celecoxib 200 mg 05/26/20 21:00 05/27/20 20:32 Celecoxib 200 Mg Capsule PO 200 mg BID CAM Administration Docusate Sodium 100 mg 05/26/20 21:00 05/27/20 20:30 Docusate Sodium 100 Mg Capsule PO 100 mg BID CAM Administration Hydromorphone HCl 0.25 mg 05/26/20 12:21 Hydromorphone Hcl 0.5 Mg/0.5 Ml Syringe IVPUSH Q4H PRN Pain, Severe (Pain Scale 7-10) Dextrose/Sodium Chloride 1,000 mls @ 80 mls/hr 05/26/20 12:21 05/28/20 00:20 D51/2ns IVCONT 80 mls/hr .[id number] CAM Administration Lorazepam 0.5 mg 05/27/20 16:39 05/27/20 16:49 Lorazepam 0.5 Mg Tablet PO 0.5 mg Q8H PRN Administration anxiety Naloxone HCl 0.2 mg 05/26/20 12:21 Naloxone Hcl 0.4 Mg/Ml Vial IVPUSH Q2M PRN Excessive sedation or RR < 8 Ondansetron HCl 4 mg 05/26/20 11:56 Ondansetron Hcl 4 Mg/2 Ml Vial IVPUSH ONCE PRN Nausea and Vomiting Ondansetron HCl 4 mg 05/26/20 12:21 05/26/20 19:35 Ondansetron Hcl 4 Mg/2 Ml Vial IVPUSH 4 mg Q8H PRN Administration Nausea and Vomiting Oxycodone HCl 10 mg 05/26/20 21:00 05/27/20 20:30 Oxycodone Hcl Er 10 Mg Tab.Er.12h PO 10 mg BID CAM Administration Pravastatin Sodium 40 mg 05/26/20 21:00 05/27/20 20:31 Pravastatin Sodium 40 Mg Tablet PO 40 mg BEDTIME CAM Administration Senna 17.2 mg 05/26/20 12:21 Sennosides 8.6 Mg Tablet PO BEDTIME PRN Constipation Sodium Chloride 3 ml 05/26/20 16:00 05/28/20 00:21 0.9 % Sodium Chloride Flush 3 Ml Syringe IVFLUSH Not Given QSHIFT [facility] Labs CBC & Chem 7: 05/28/20 05:47 05/28/20 05:47 Assessment and Plan (1) Fever: Status: Acute (2) Hereditary hemochromatosis: Problem details: Therapeutic Phlebotomies every month Status: Acute (3) Hypertension: Status: Acute (4) Peripheral neuropathy: Status: Acute (5) Elevated cholesterol: Status: Acute (6) Infection of total knee replacement: Status: Acute Assessment and Plan: 70M presnted for elected left knee arthroplasty, had fever last night isolated fever doubt infection, monitor left knee arthroplasty pod 2 htn atenolol peripheral neuropathy carbamazepine hld statin hereditery hemochromatosis stable, LFTs appear normal, avoid transfusion if possible
[2020-05-28] MEDS: Celecoxib 200 MG CAPSULE PO (09:43)
[2020-05-28] MEDS: carBAMazepine ER 200 MG TAB.ER.12H PO (09:43)
[2020-05-28] MEDS: 0.9 % Sodium Chloride Flush 3 ML SYRINGE IVFLUSH (09:44)
--- NOTE | 2020-05-28 10:52 | P.F2F_ITS ---
Service Date Service Date: 05/28/20 Reasons for Services Reason for physical therapy: home safety and mobility, therapeutic exercises, restore joint function, gait/transfer training, ADL training and energy conservation Reason for occupational therapy: home safety and mobility, therapeutic exercises, restore joint function, gait/transfer training, ADL training and energy conservation Overseeing Care: Bruce Payan Homebound: Leaving the home is medically contraindicated at this time without the asist of a device and/or another person due th the listed conditions above and below. Reason homebound: unsteady gait / fall risk, leg weakness, pain with ambulation, poor balance / fall risk and unable to drive Homebound supporting statement: as above Certification: Based on the above findings, I certify that this patient is confined to the home and needs intermittent chcf care, physical therapy and/or speech therapy, or continues to need occupational therapy. The patient is under my care, and I have initiated the establishment of the plan of care. The patient will be followed by a physician who will periodically review the plan of care.
--- NOTE | 2020-05-28 12:27 | MHC.CM.PN ---
Addendum entered by Kaur Hill RN 05/28/20 12:37: PER ORTHOPEDIC PA, PT WILL RETURN HOME WITH [facility] AND FOLLOW-UP WITH ORTHO NEXT WEEK. VNA IS AWARE. Original Note: DISCHARGE NOTE: PT DISCHARGING HOME TODAY W/HOME PT AND RESUMPTION OF NURSING CARE THROUGH [facility], SPOKE WITH LIASON ON 05/28/20 WHO REPORTS BOTH [facility]NA AND PT WILL BE ABLE TO START TOMORROW 05/29/20. PT'S TO TRANSPORT HOME.
--- NOTE | 2020-06-01 10:19 | OP_ITS ---
SURGEON: Bruce Payan MD INDICATIONS: This is a 70-year-old gentleman, who is status post resection arthroplasty with placement of antibiotic spacer, who was consented to undergo a revision arthroplasty. ESR and CRP were normal and he had a dry tap of his knee after full treatment. PREOPERATIVE DIAGNOSIS: Left knee prosthetic infection. POSTOPERATIVE DIAGNOSIS: Left knee prosthetic infection. PROCEDURE PERFORMED: Left knee revision arthroplasty. ESTIMATED BLOOD LOSS: 150 mL. COMPLICATIONS: ANESTHESIA: Regional and spinal. ASSISTANTS: WHITNEY Lutz SPECIMENS: IMPLANTS: Edwin Triathlon Revision #7 with a 50 mm stem, 5 mm posterior augment, 5 mm medial augment, and a 10 mm lateral augment with a #6 tibia with a 50 mm stem and 10 mm lateral augment. FLUIDS: 1500. TOURNIQUET TIME: 130 minutes. DESCRIPTION OF PROCEDURE: The patient was brought to the operating room, placed supine on the operative table, and prepped and draped in standard sterile fashion. A time-out was called to identify proper site, proper procedure, and proper surgeon. IV antibiotics per weight were administered. I began by exsanguinating the limb and insufflating the tourniquet to 300 mmHg. I then made a standard midline incision over the prior incision. Dissection was taken down to the prior arthrotomy, and a medial parapatellar arthrotomy was again performed. I slowly peeled off the adhered patellar tendon and there was significant scar tissue in the retropatellar region, which required resection, and I was finally able to mobilize the patella sufficiently to access the cement. The cement was carefully malleted out circumferentially, so as to preserve as much bone as possible. There was significant bone loss laterally in the tibia once the cement was removed. I then turned my attention to femur and removed the femur and had some moderate bone loss medially, laterally, and anteriorly. Once all cement was removed, I irrigated copiously and removed any necrotic debris. There was no evidence of fluid collection, abscess, or ongoing infection. Once this was done, I turned my attention to the tibia. There was a reasonably well-preserved medial tibial plateau, which I used as my guide and then placed an intramedullary tibial cutting guide and elected to make a 10 mm cut for an augment laterally without the need for augmentation medially. This was done without complication and a provisional tibia was placed. Once this was done, I turned my attention to the femur again. Using the medial epicondylar axis, I made my distal femoral clean-up cut. I then sized my femur and felt there was no need for augmentation. There was need for 5 mm augments and a 10 mm lateral augment compared to a 5 mm medial augment. I made my clean-up cut and prepared my trial on the back table and trialed this, and I was happy with the stability using a 13 mm trial. Therefore, I turned my attention to the patella. It appeared diminutive on radiographs, but there was approximately 12 mm of bone. I made a 1 to 2 mm clean-up cut down to bleeding bone and placed a 35S patella and then re-trialed and was happy with the tracking range and stability. All instrumentation was then removed and I irrigated copiously. Two bags of bone cement were mixed on the back table, and I cemented in the tibia and femur in standard fashion while applying axial compression as well as the patella. Once the cement was dry, all excess cement was removed and various inserts were trialed and I was happiest with 13. A 13 TS insert was placed. TS post was placed and the tourniquet was let down. There was no brisk bleeding. A 3-minute iodine soak with local TXA was applied, and a layered closure with abiola on the skin was performed. The patient was placed into a sterile dressing, extubated, and brought to the recovery room in stable condition. There were no known complications. MD YUE Vaughan/SUSY / [id number]
== END 2020-05-28 15:05 | disposition home health service (06) | DRG 468 ==
LOC: HO.SSSA 06:00 → HO.S3 11:53
PROVIDERS: Physician Assistant; Admitting Provider Orthopaedic Surgery; PCP Internal Medicine; Visit Provider Orthopaedic Surgery
PROC: 0SPD0JZ Removal of Synthetic Substitute from Left Knee Joint, Open Approach (ICD-10-PCS; CPT 27487; principal; 2020-05-26 07:30)
DX: T84.59XA Infection and inflammatory reaction due to other internal joint prosthesis, initial encounter (principal); E78.00 Pure hypercholesterolemia, unspecified; E83.110 Hereditary hemochromatosis; I10 Essential (primary) hypertension; G62.9 Polyneuropathy, unspecified; Z20.828 Contact with and (suspected) exposure to other viral communicable diseases; Z79.82 Long term (current) use of aspirin; Z79.899 Other long term (current) drug therapy
CPT/HCPCS: 36415; 73560; 80048; 85025; 85652; 86140; 86850; 86900; 86901; 87635; 97110; 97116; 97162; C1713; C1776; J1885; J2250; J2405; J3010; J3370

== ENCOUNTER → 2020-06-02 14:04 | Outpatient (BNVA) | payer MEDICARE, SELFPAY | PROVIDERS: PCP Physician Assistant Medical; Visit Provider Physician Assistant | DX: Z47.1 Aftercare following joint replacement surgery (principal); Z96.652 Presence of left artificial knee joint | CPT/HCPCS: 99212 ==

== ENCOUNTER → 2020-06-09 11:19 | Outpatient (BNVA) | payer MEDICARE, SELFPAY | PROVIDERS: PCP Internal Medicine; Visit Provider Physician Assistant | DX: Z47.1 Aftercare following joint replacement surgery (principal); Z48.02 Encounter for removal of sutures; Z96.652 Presence of left artificial knee joint | CPT/HCPCS: 99212 ==

== ENCOUNTER 2020-07-12 08:26 | Outpatient (REF) | payer MEDICARE, SELFPAY ==
--- NOTE | 2020-07-12 08:58 | XR_ITS ---
EXAMINATION: KNEE X-RAY CLINICAL INFORMATION: Left knee replacement. COMPARISON: Previous x-ray most recent May 2020 TECHNIQUE: Standing AP view of both knees and lateral and sunrise view of the left knee FINDINGS: Left: There is a 3 component left knee replacement in satisfactory position. There is a lucency seen in the medial patella questionable for a small nondisplaced fracture. There is a joint effusion. There is anterior soft tissue swelling. Standing AP view of the right knee demonstrates arthritis medial femoral tibial joints with joint space narrowing and osteophyte formation. XR/XR knee LT 2V IMPRESSION: Left: Left knee replacement. Lucency in the medial patella seen on the sunrise view questionable for nondisplaced fracture. Joint effusion and anterior soft tissue swelling. Arthritis at the right medial femoral tibial joint.
--- NOTE | 2020-07-12 08:58 | XR_ITS ---
EXAMINATION: KNEE X-RAY CLINICAL INFORMATION: Left knee replacement. COMPARISON: Previous x-ray most recent May 2020 TECHNIQUE: Standing AP view of both knees and lateral and sunrise view of the left knee FINDINGS: Left: There is a 3 component left knee replacement in satisfactory position. There is a lucency seen in the medial patella questionable for a small nondisplaced fracture. There is a joint effusion. There is anterior soft tissue swelling. Standing AP view of the right knee demonstrates arthritis medial femoral tibial joints with joint space narrowing and osteophyte formation. XR/XR knee standing BI IMPRESSION: Left: Left knee replacement. Lucency in the medial patella seen on the sunrise view questionable for nondisplaced fracture. Joint effusion and anterior soft tissue swelling. Arthritis at the right medial femoral tibial joint.
== END 2020-07-12 08:27 | disposition home or self-care (01) ==
LOC: HO.HOSX 08:26
PROVIDERS: Visit Provider Orthopaedic Surgery
DX: Z47.89 Encounter for other orthopedic aftercare (principal); Z96.652 Presence of left artificial knee joint
CPT/HCPCS: 73560; 73565; 99212

== ENCOUNTER 2020-07-16 08:27 | Outpatient (REF) | payer SELFPAY ==
[2020-04-05 05:46] LABS: MANUAL DIFF FLAG NO
[2020-04-05 06:02] LABS: Basophils Percent Auto 0.6 % (0-2); Eosinophils Absolute Auto 0.3 X10*3/uL (0.0-0.4); Eosinophils Percent Auto 5.3 % (0-4); Hematocrit 39.4 % (42-52); Hemoglobin 13.1 g/dl (14.0-18.0); Imm Gran Abs Auto 0.05 X10*3/uL (0.00-0.03); Lymphocytes Absolute Auto 0.9 X10*3/uL (1.2-4.9); Lymphocytes Percent Auto 19.3 % (20-40); Mean Corpuscular HGB Conc 33.2 g/dl (31.0-36.0); Mean Corpuscular Hemoglobin 32.9 pg (27.0-33.0); Mean Platelet Volume 10.5 fL (9.4-12.4); Monocytes Absolute Auto 0.6 X10*3/uL (0.1-1.2); Monocytes Percent Auto 12.3 % (2-11); Neutrophils Percent Auto 61.5 % (45-73); Platelet Count 252 X10*3/uL (160-400); Red Blood Count 3.98 X10*6/uL (4.60-5.80); Red Cell Distribution Width 11.7 % (11.0-16.0); White Blood Count 4.9 X10*3/uL (4.8-10.8)
[2020-04-05 06:28] LABS: Anion Gap 11 (12-20); Blood Urea Nitrogen 13 mg/dL (9-16); Calcium 8.8 mg/dL (8.4-10.2); Carbon Dioxide 30 mmol/L (22-29); Chloride 102 mmol/L (96-108); Estimated Glomerular Filt Rate > 60; Glucose Random 84 mg/dL (60-115); Potassium 4.3 mmol/l (3.3-5.1); Sodium 139 mmol/L (135-145)
== END 2020-07-16 08:28 | disposition home or self-care (01) ==
LOC: HO.MMNH1L 08:27
PROVIDERS: Visit Provider Family Medicine
DX: S81.002A Unspecified open wound, left knee, initial encounter (principal); X58.XXXA Exposure to other specified factors, initial encounter; M25.562 Pain in left knee; Z79.2 Long term (current) use of antibiotics
CPT/HCPCS: 36415; 80048; 80202; 85025

== ENCOUNTER → 2020-09-07 15:09 | Outpatient (BNVA) | payer MEDICARE, SELFPAY | PROVIDERS: PCP Internal Medicine; Visit Provider Surgery Vascular Surgery | DX: I83.11 Varicose veins of right lower extremity with inflammation (principal) | CPT/HCPCS: 99202 ==

== ENCOUNTER 2020-09-15 12:33 | Outpatient (REF) | payer MEDICARE, SELFPAY ==
--- NOTE | ~2020-09-15 | US_ITS ---
EXAMINATION: US VENOUS DUPLEX (Reflux Exam) LOWER EXTREMITY, RIGHT AND LEFT CLINICAL INDICATION: Bilateral varicose veins. COMPARISON: None TECHNIQUE: Color flow triplex imaging and compression Doppler was performed to evaluate both the deep and the superficial systems bilaterally. To evaluate the superficial system, the examination was performed in the upright position. Color-flow Doppler ultrasound and compression ultrasound were utilized. In addition, maneuvers were utilized to demonstrate reflux. FINDINGS: 1. DEEP VENOUS ULTRASOUND OF THE RIGHT LOWER EXTREMITY: Respiratory variation, normal compression and augmented flow are noted in the right common femoral vein as well as the right popliteal vein and there is no evidence of deep venous thrombosis at these locations. There is no evidence of reflux in the deep system in either the common femoral vein or the popliteal vein. There is no evidence of popliteal artery aneurysm or popliteal fossa cyst. . 2. SUPERFICIAL ULTRASOUND WITH DOPPLER OF RIGHT LOWER EXTREMITY: The right great saphenous vein at the saphenofemoral junction measures 10 mm, at the mid thigh 4 mm, cyokf-smf-tmsm 4 mm, skcia-ayl-tstz 4 mm, at mid calf 3 mm and at the ankle measures 3 mm. Reflux is seen within the right greater saphenous vein within the proximal thigh of approximately 1 second duration and in the mid thigh of approximately 1.5 seconds duration. No other reflux is identified within the greater saphenous vein. The right small saphenous vein measures 3 mm and shows no reflux. 3. DEEP VENOUS ULTRASOUND OF THE LEFT LOWER EXTREMITY: Respiratory variation, normal compression and augmented flow are noted in the left common femoral vein as well as the left popliteal vein and there is no evidence of deep venous thrombosis at these locations. There is some insufficiency noted within the mid femoral vein and popliteal vein with femoral vein duration being approximately 0.7 seconds and within popliteal vein up to 1.9 seconds. There is no evidence of popliteal artery aneurysm or popliteal fossa cyst. 4. SUPERFICIAL ULTRASOUND WITH DOPPLER OF LEFT LOWER EXTREMITY: Left great saphenous vein at the saphenofemoral junction measures 7 mm, at the mid thigh 5 mm, szqxf-qry-tvyc 2 mm, jmspk-pea-krzh 2 mm, at mid calf 3 mm and at the ankle measures 3 mm. Insufficiency is noted in the proximal thigh up to 1.2 seconds in duration, in the mid calf up to 2.8 seconds in duration, and at the ankle up to 2.6 cm in duration. The left small saphenous vein measures 4 mm and shows no reflux. Varicosities are noted about the mid thigh and calf without reflux within them. US/US venous duplex LE BI IMPRESSION: 1. Bilateral lower extremity great saphenous vein segmental insufficiency with no insufficiency noted at the saphenofemoral junction. 2. Left lower extremity deep venous insufficiency in the mid femoral vein and popliteal vein.
== END 2020-09-15 12:34 | disposition home or self-care (01) ==
LOC: HO.US 12:33
PROVIDERS: Visit Provider Surgery Vascular Surgery
DX: I83.893 Varicose veins of bilateral lower extremities with other complications (principal)
CPT/HCPCS: 93970

== ENCOUNTER → 2020-10-07 14:50 | Outpatient (BNVA) | payer MEDICARE, SELFPAY | PROVIDERS: PCP Internal Medicine; Visit Provider Surgery Vascular Surgery | DX: I83.11 Varicose veins of right lower extremity with inflammation (principal) | CPT/HCPCS: 99212 ==

== ENCOUNTER 2020-11-24 12:41 | Outpatient (REF) | payer MEDICARE, SELFPAY | END 2020-11-24 12:42 | disposition home or self-care (01) | LOC: HO.BBR 12:41 | PROVIDERS: Visit Provider Obstetrics & Gynecology | DX: Z13.89 Encounter for screening for other disorder (principal) ==

== ENCOUNTER 2021-01-04 12:43 | Outpatient (REF) | payer MEDICARE, SELFPAY | END 2021-01-04 12:44 | disposition home or self-care (01) | LOC: HO.BBR 12:43 | PROVIDERS: PCP Internal Medicine; Visit Provider Internal Medicine | DX: Z13.89 Encounter for screening for other disorder (principal) ==

== ENCOUNTER 2021-01-18 11:38 | Outpatient (REF) | payer MEDICARE, SELFPAY | END 2021-01-18 11:39 | disposition home or self-care (01) | LOC: HO.BBR 11:38 | PROVIDERS: Visit Provider Obstetrics & Gynecology | DX: Z13.89 Encounter for screening for other disorder (principal) ==

== ENCOUNTER 2021-02-15 13:48 | Outpatient (REF) | payer MEDICARE, SELFPAY | END 2021-02-15 13:49 | disposition home or self-care (01) | LOC: HO.BBR 13:48 | PROVIDERS: Visit Provider Obstetrics & Gynecology | DX: Z13.89 Encounter for screening for other disorder (principal) ==

== ENCOUNTER 2021-03-18 08:54 | Outpatient (REF) | payer MEDICARE, SELFPAY | END 2021-03-18 08:55 | disposition home or self-care (01) | LOC: HO.BBR 08:54 | PROVIDERS: Visit Provider Internal Medicine | DX: Z13.89 Encounter for screening for other disorder (principal) ==

== ENCOUNTER → 2021-04-11 07:56 | Outpatient (BNVA) | payer MEDICARE, SELFPAY | PROVIDERS: PCP Internal Medicine; Visit Provider Orthopaedic Surgery | DX: Z47.1 Aftercare following joint replacement surgery (principal); Z96.652 Presence of left artificial knee joint | CPT/HCPCS: 99212 ==

== ENCOUNTER 2021-04-22 08:51 | Outpatient (REF) | payer MEDICARE, SELFPAY | END 2021-04-22 08:52 | disposition home or self-care (01) | LOC: HO.BBR 08:51 | PROVIDERS: Visit Provider Internal Medicine | DX: Z13.89 Encounter for screening for other disorder (principal) ==

== ENCOUNTER 2021-06-06 14:16 | Outpatient (REF) | payer MEDICARE, SELFPAY | END 2021-06-06 14:17 | disposition home or self-care (01) | LOC: HO.BBR 14:16 | PROVIDERS: Visit Provider Internal Medicine | DX: Z13.89 Encounter for screening for other disorder (principal) ==

== ENCOUNTER 2021-07-08 12:33 | Outpatient (REF) | payer MEDICARE, SELFPAY | END 2021-07-08 12:34 | disposition home or self-care (01) | LOC: HO.BBR 12:33 | PROVIDERS: Visit Provider Internal Medicine | DX: Z13.89 Encounter for screening for other disorder (principal) ==

== ENCOUNTER 2021-08-11 09:52 | Outpatient (REF) | payer MEDICARE, SELFPAY ==
[2021-08-11 13:16] LABS: COVID-19 Test Negative (Negative)
== END 2021-08-11 09:53 | disposition home or self-care (01) ==
LOC: HO.LAB 09:52
PROVIDERS: Visit Provider Internal Medicine
DX: Z20.822 Contact with and (suspected) exposure to COVID-19 (principal)
CPT/HCPCS: 87635; C9803

== ENCOUNTER 2021-09-01 12:54 | Outpatient (REF) | payer MEDICARE, SELFPAY | END 2021-09-01 12:55 | disposition home or self-care (01) | LOC: HO.BBR 12:54 | PROVIDERS: Visit Provider Internal Medicine | DX: Z13.89 Encounter for screening for other disorder (principal) ==

== ENCOUNTER 2021-10-07 07:54 | Outpatient (REF) | payer MEDICARE, SELFPAY | END 2021-10-07 07:55 | disposition home or self-care (01) | LOC: HO.BBR 07:54 | PROVIDERS: Visit Provider Internal Medicine | DX: Z13.89 Encounter for screening for other disorder (principal) ==

== ENCOUNTER 2021-11-11 07:46 | Outpatient (REF) | payer MEDICARE, SELFPAY | END 2021-11-11 07:47 | disposition home or self-care (01) | LOC: HO.BBR 07:46 | PROVIDERS: Visit Provider Internal Medicine | DX: Z13.89 Encounter for screening for other disorder (principal) ==

== ENCOUNTER 2021-12-09 08:47 | Outpatient (REF) | payer MEDICARE, SELFPAY | END 2021-12-09 08:48 | disposition home or self-care (01) | LOC: HO.BBR 08:47 | PROVIDERS: Visit Provider Internal Medicine | DX: Z13.89 Encounter for screening for other disorder (principal) ==

== ENCOUNTER 2022-01-11 12:41 | Outpatient (REF) | payer MEDICARE, SELFPAY | END 2022-01-11 12:42 | disposition home or self-care (01) | LOC: HO.BBR 12:41 | PROVIDERS: Visit Provider Internal Medicine | DX: Z13.89 Encounter for screening for other disorder (principal) ==

== ENCOUNTER 2022-01-24 10:24 | Emergency (ER) | payer OTHER, SELFPAY ==
--- NOTE | ~2022-01-24 | XR_ITS ---
EXAMINATION: XR CHEST CLINICAL INFORMATION: Congestion, shortness of breath. COMPARISON: None TECHNIQUE: 2 views of the chest were obtained. FINDINGS: No significant abnormality is noted involving the heart, lungs, mediastinum, bony thorax or soft tissues. XR/XR chest 2V IMPRESSION: No acute cardiopulmonary process.
[2022-01-24 10:43] VITALS: BP 145/93; PULSE 76; RESP 18; TEMP 36.8; O2SAT 98; BMI 28.5
[2022-01-24 10:56] LABS: MANUAL DIFF FLAG NO
[2022-01-24 11:06] LABS: Basophils Percent Auto 0.5 % (0-2); Eosinophils Absolute Auto 0.1 X10*3/uL (0.0-0.4); Eosinophils Percent Auto 1.5 % (0-4); Hematocrit 45.2 % (42.0-52.0); Hemoglobin 15.2 g/dl (14.0-18.0); Imm Gran Abs Auto 0.05 X10*3/uL (0.00-0.03); Imm Gran Pct Auto 0.8 % (0.0-0.4); Lymphocytes Absolute Auto 0.8 X10*3/uL (1.2-4.9); Lymphocytes Percent Auto 13.5 % (20-40); Mean Corpuscular HGB Conc 33.6 g/dl (31.0-36.0); Mean Corpuscular Volume 95.2 fL (80.0-98.0); Monocytes Percent Auto 17.1 % (2-11); Neutrophils Absolute Auto 4.1 x10*3/uL (2.0-8.3); Neutrophils Percent Auto 66.6 % (45-73); Platelet Count 225 X10*3/uL (160-400); Red Blood Count 4.75 X10*6/uL (4.60-5.80); Red Cell Distribution Width 12.3 % (11.0-16.0); White Blood Count 6.1 X10*3/uL (4.8-10.8)
--- NOTE | 2022-01-24 11:15 | ED.SOB ---
HPI - SOB/Dyspnea General Chief Complaint: Dyspnea Stated Complaint: Difficulty breathing Time Seen by Provider: 01/24/22 11:07 Source: patient Mode of arrival: ambulatory Limitations: no limitations History of Present Illness HPI Narrative: Patient comes to the emergency room complaining of cough and shortness of breath. Patient states he was diagnosed with COVID-19 11 days ago. Patient finishes treatment with Paxlovid, patient has been trying [id number] Mucinex for the cough without relief. Patient states that he feels ?gurgly?. Patient denies any chest pain or lower extremity pain or swelling. Related Data Home Medications Medication Instructions Recorded Confirmed carbamazepine 200 mg 200 mg PO BID 04/07/20 05/17/20 capsule,extended release [id number] gemfibrozil 600 mg tablet 600 mg PO BID 04/07/20 05/17/20 lorazepam 0.5 mg tablet (Ativan) 0.5 mg PO BEDTIME PRN Anxiety 04/08/20 05/17/20 atenolol 100 mg tablet 100 mg PO DAILY 05/12/20 05/17/20 carbamazepine 400 mg 400 mg PO BEDTIME 05/12/20 05/17/20 tablet,extended release,12 hr lovastatin 40 mg tablet 40 mg PO QPM 05/12/20 05/17/20 Previous Rx's Medication Instructions Recorded acetaminophen 325 mg tablet 650 mg PO Q6H PRN Pain, Mild (Pain 05/28/20 Scale 1-3) 30 days #240 tabs aspirin 325 mg tablet 325 mg PO BID 14 days #28 tabs 05/28/20 celecoxib 200 mg capsule 200 mg PO BID 30 days #60 caps 05/28/20 docusate sodium 100 mg capsule 100 mg PO BID 30 days #60 caps 05/28/20 celecoxib 200 mg capsule (Celebrex) 200 mg PO BID 30 days #60 caps 06/07/20 hydrocodone 5 mg-acetaminophen 325 1 tab PO Q4H PRN Pain, Moderate 06/09/20 mg tablet (Pain Scale 4-6 7 days #42 tabs celecoxib 200 mg capsule (Celebrex) 200 mg PO BID 30 days #60 caps 06/29/20 rivaroxaban 20 mg tablet (Xarelto) 20 mg PO DAILY #30 tabs 01/24/22 Allergies Allergy/AdvReac Type Severity Reaction Status Date / Time No Known Allergies Allergy Verified 04/11/21 08:04 [No Known Allergies*] Review of Systems Review of Systems: Constitutional : No Weight loss, No Fever, No Chills, No Night Sweats, No Fatigue, No Malaise ENT/Mouth : No Hearing loss, No Ear Pain, No Nasal Congestion, No Sinus Pain, No Hoarseness, No sore throat, No Rhinorrhea, No Swallowing Difficulty Eyes: No Eye Pain, No Swelling, No Redness, No Foreign Body, No Discharge, No Vision Changes Cardiovascular : No Chest Pain, no orthopnea, no edema no palpitations, complaining of shortness of breath with exertion Respiratory : No Cough, No Sputum, No Wheezing, No Smoke Exposure Gastrointestinal : No Nausea, No Vomiting, No Diarrhea, No Constipation, No abdominal Pain, No Hematochezia, No Melena Genitourinary : no irregular bleeding, No Dysuria, No Urinary Frequency, No Hematuria, No Urinary Incontinence, No Urgency, No Flank Pain, No Urinary Flow Changes, No Hesitancy Musculoskeletal : No joint pain, No Myalgias, No Joint Swelling Skin : No Skin Lesions, No rash Neuro : No Weakness, No Numbness, No Paresthesias, No Loss of Consciousness, No Dizziness, No Headache Psych : No Anxiety/Panic, No Depression, No SI/HI/AH/VH, No Social Issues, Heme/Lymph: No Bruising, No Bleeding,No Lymphadenopathy Endocrine : No Polyuria, No Polydipsia, No Temperature Intolerance COUNTS INCLUDE 234 BEDS AT THE [facility] Past Medical History Medical History Arthritis Bilateral primary osteoarthritis of knee Elevated cholesterol Frequent headaches Hereditary hemochromatosis History of panic attacks History of skin cancer Hypertension Infection of total knee replacement Peripheral neuropathy Prostate cancer Surgical History History of prostate surgery History of total left knee replacement (TKR) Hx of colonoscopy Hx of left knee surgery Hx of prostatectomy Status post implantation of artificial urinary sphincter Family History Family History Mother No problems noted. Father No problems noted. Social History Social History Household Members: Spouse Housing: House Are you a primary day care supervisor to a significant other at home: No Do you presently have visiting nurse or other home services: No Second Hand Smoke Exposure: No Advance Directives: No Advance Directives Information Provided: No Advance Directives Date on File: 03/22/20 service: Yes ([facility] [employer], AFTER HOURS/[employer] [address]) Current occupational status: retired Physical Exam Vital Signs: Vital Signs: Last Vital Signs Temp 98.2 F 01/24/22 10:43 Pulse 71 01/24/22 12:08 Resp 18 01/24/22 12:08 BP 134/85 01/24/22 12:08 Pulse Ox 96 01/24/22 12:08 O2 Del Method 01/24/22 12:08 BMI result Body Mass Index 28.5 Const: Other: Appearance: Alert. Oriented X3. No acute distress. Eyes: Pupils equal, round and reactive to light. ENT: Pharynx normal. Neck: Normal inspection. Neck supple. No lymph nodes noted. No crepitus CVS: Normal heart rate and rhythm. Pulses normal. Normal S1 and S2 Respiratory: No respiratory distress. Right posterior rales Abdomen: Soft and nontender. No rigidity. No distention. Skin: Skin warm and dry. Normal skin color. Normal skin turgor. Extremities: No lower extremity edema. No Lacerations. No Rash Neuro: Oriented X 3. No motor deficit. No sensory deficit. Moving all extremities. No slurred speech. CN 2 through 12 grossly intact Psych: calm, cooperative, normal affect Course Course Course Narrative: Patient's labs and imaging pending. Patient's vitals are stable. Patient was walked around the emergency room, it states 95% and above with exertion. No chest pain Patient's potassium is mildly bumped at 5.4, EKG does not show peaked T-waves. Patient was given 1 dose of Lokelma. I discussed the patient with Dr. Morales. Patient already takes atenolol 100 mg every day, rate is controlled. No changes will be made to this medication, patient instructed to continue taking it. Patient will be started on Xarelto 20 mg daily. I discussed with the patient and his the risks versus benefits of being on on a blood thinner, patient understands. Patient decided to go ahead and start Xarelto. MDM - SOB/Dyspnea Lab Data Result diagrams: 01/24/22 10:52 01/24/22 10:52 Labs: Lab Results 01/24/22 01/24/22 01/24/22 Range/Units 10:52 10:52 10:52 WBC 6.1 (4.8-10.8) X10*3/uL RBC 4.75 (4.60-5.80) X10*6/uL Hgb 15.2 (14.0-18.0) g/dl Hct 45.2 (42.0-52.0) % MCV 95.2 (80.0-98.0) fL MCH 32.0 (27.0-33.0) pg MCHC 33.6 (31.0-36.0) g/dl RDW 12.3 (11.0-16.0) % Plt Count 225 (160-400) X10*3/uL MPV 11.0 (9.4-12.4) fL Immature Gran % (Auto) 0.8 H (0.0-0.4) % Neut % (Auto) 66.6 (45-73) % Lymph % (Auto) 13.5 L (20-40) % Harris % (Auto) 17.1 H (2-11) % Eos % (Auto) 1.5 (0-4) % Baso % (Auto) 0.5 (0-2) % Lymph # (Auto) 0.8 L (1.2-4.9) X10*3/uL Harris # (Auto) 1.0 (0.1-1.2) X10*3/uL Eos # (Auto) 0.1 (0.0-0.4) X10*3/uL Baso # (Auto) 0.0 (0.0-0.2) X10*3/uL Abs Immat Gran (auto) 0.05 H (0.00-0.03) X10*3/uL Absolute Neuts (auto) 4.1 (2.0-8.3) x10*3/uL Absolute Nucleated RBC 0.000 (0.0-0.012) X10*3/uL Nucleated RBC % (auto) 0.0 (0.0-0.2) /100WBC Sodium 141 (135-145) mmol/L Potassium 5.4 H (3.3-5.1) mmol/L Chloride 105 (96-108) mmol/L Carbon Dioxide 23 (22-29) mmol/L Anion Gap 18 (12-20) BUN 17 H (9-16) mg/dL Creatinine 1.18 (0.5-1.4) mg/dL Estim Creat Clear Calc 69.6 Estimated GFR > 60 Random Glucose 98 (60-115) mg/dL Calcium 9.6 D (8.4-10.2) mg/dL Troponin I High Sens < 3.5 (<3.5-35.0) ng/L B-Natriuretic Peptide 153 H (<100) pg/mL COVID-19 (TERRY) (Negative) COVID-19 Clin Com 01/24/22 Range/Units 11:25 WBC (4.8-10.8) X10*3/uL RBC (4.60-5.80) X10*6/uL Hgb (14.0-18.0) g/dl Hct (42.0-52.0) % MCV (80.0-98.0) fL MCH (27.0-33.0) pg MCHC (31.0-36.0) g/dl RDW (11.0-16.0) % Plt Count (160-400) X10*3/uL MPV (9.4-12.4) fL Immature Gran % (Auto) (0.0-0.4) % Neut % (Auto) (45-73) % Lymph % (Auto) (20-40) % Harris % (Auto) (2-11) % Eos % (Auto) (0-4) % Baso % (Auto) (0-2) % Lymph # (Auto) (1.2-4.9) X10*3/uL Harris # (Auto) (0.1-1.2) X10*3/uL Eos # (Auto) (0.0-0.4) X10*3/uL Baso # (Auto) (0.0-0.2) X10*3/uL Abs Immat Gran (auto) (0.00-0.03) X10*3/uL Absolute Neuts (auto) (2.0-8.3) x10*3/uL Absolute Nucleated RBC (0.0-0.012) X10*3/uL Nucleated RBC % (auto) (0.0-0.2) /100WBC Sodium (135-145) mmol/L Potassium (3.3-5.1) mmol/L Chloride (96-108) mmol/L Carbon Dioxide (22-29) mmol/L Anion Gap (12-20) BUN (9-16) mg/dL Creatinine (0.5-1.4) mg/dL Estim Creat Clear Calc Estimated GFR Random Glucose (60-115) mg/dL Calcium (8.4-10.2) mg/dL Troponin I High Sens (<3.5-35.0) ng/L B-Natriuretic Peptide (<100) pg/mL COVID-19 (TERRY) Positive A (Negative) COVID-19 Clin Com See Note Discharge Plan Discharge Clinical Impression: New onset atrial flutter Patient Disposition: Home, Self-Care Instructions: Atrial Flutter (ED) Additional Instructions: Please follow-up with your primary care physician tomorrow. If you have any worsening or new symptoms, please return to the emergency room or call 911 Prescriptions: New Xarelto 20 mg tablet 20 mg PO DAILY Qty: 30 1RF Rx Instructions: must administer with evening meal No Action celecoxib [Celebrex] 200 mg capsule 200 mg PO BID 30 Days Qty: 60 0RF hydrocodone-acetaminophen 5-325 mg tablet 1 tab PO Q4H PRN (Reason: Pain, Moderate (Pain Scale 4-6) 7 Days Qty: 42 0RF celecoxib [Celebrex] 200 mg capsule 200 mg PO BID 30 Days Qty: 60 3RF atenolol 100 mg Tablet 100 mg PO DAILY carbamazepine 400 mg Tablet Extended Release 12 Hr 400 mg PO BEDTIME lovastatin 40 mg Tablet 40 mg PO QPM celecoxib 200 mg Capsule 200 mg PO BID 30 Days Qty: 60 0RF acetaminophen 325 mg Tablet 650 mg PO Q6H PRN (Reason: Pain, Mild (Pain Scale 1-3)) 30 Days Qty: 240 0RF aspirin 325 mg Tablet 325 mg PO BID 14 Days Qty: 28 0RF docusate sodium 100 mg Capsule 100 mg PO BID 30 Days Qty: 60 0RF gemfibrozil 600 mg tablet 600 mg PO BID carbamazepine 200 mg capsule, ER multiphase 12 hr 200 mg PO BID lorazepam [Ativan] 0.5 mg tablet 0.5 mg PO BEDTIME PRN (Reason: Anxiety) Referrals: Yung Morales MD [Physician] - 1 day
[2022-01-24 11:20] LABS: Anion Gap 18 (12-20); Blood Urea Nitrogen 17 mg/dL (9-16); Calcium 9.6 mg/dL (8.4-10.2); Carbon Dioxide 23 mmol/L (22-29); Chloride 105 mmol/L (96-108); Creatinine Clr Calc Pharmacy 69.6; Estimated Glomerular Filt Rate > 60; Glucose Random 98 mg/dL (60-115); Potassium 5.4 mmol/L (3.3-5.1); Sodium 141 mmol/L (135-145)
[2022-01-24 11:26] VITALS: BP 131/87; PULSE 73; RESP 18; O2SAT 95
[2022-01-24 11:43] LABS: COVID-19 Test Positive (Negative)
--- NOTE | 2022-01-24 12:03 | ECG_ITS ---
Test Reason : sob Blood Pressure : / mmHG Vent. Rate : 069 BPM Atrial Rate : 000 BPM P-R Int : 000 ms QRS Dur : 096 ms QT Int : 404 ms P-R-T Axes : 000 -44 013 degrees QTc Int : 432 ms Atrial fibrillation Left axis deviation Septal infarct , age undetermined Inferior infarct , age undetermined Abnormal ECG When compared with ECG of 06-MAY-2020 10:17, Atrial fibrillation has replaced Sinus rhythm Septal infarct is now Present Referred By: Katelyn Bills Electronically Signed By:GABRIELLA WETZEL
[2022-01-24 12:08] VITALS: BP 134/85; PULSE 71; RESP 18; O2SAT 96
[2022-01-24 12:20] LABS: B Type Natriuretic Peptide 153 pg/mL (<100)
[2022-01-24 13:47] LABS: Troponin-I High Sensitivity < 3.5 ng/L (<3.5-35.0)
[2022-01-24 14:22] VITALS: BP 140/84; PULSE 72; RESP 16; O2SAT 97
[2022-01-24] MEDS: Sodium Zirconium Cyclosilicate 10 GM POWD.PACK PO (14:29)
[2022-01-24] MEDS: Rivaroxaban 20 MG TABLET PO (14:29)
== END 2022-01-24 14:57 | disposition home or self-care (01) ==
PROVIDERS: Emergency Provider Emergency Medicine; PCP Internal Medicine
DX: U07.1 COVID-19 (principal); I48.92 Unspecified atrial flutter; R06.02 Shortness of breath; I10 Essential (primary) hypertension; E78.00 Pure hypercholesterolemia, unspecified; Z79.02 Long term (current) use of antithrombotics/antiplatelets; Z79.82 Long term (current) use of aspirin; Z79.899 Other long term (current) drug therapy
CPT/HCPCS: 36415; 71046; 80048; 83880; 84484; 85025; 87635; 93005; 99283; 99284

== ENCOUNTER 2022-03-10 08:06 | Outpatient (REF) | payer OTHER, MEDICARE, SELFPAY | END 2022-03-10 08:07 | disposition home or self-care (01) | LOC: HO.BBR 08:06 | PROVIDERS: Visit Provider Internal Medicine | DX: Z13.89 Encounter for screening for other disorder (principal) ==

== ENCOUNTER 2022-04-17 13:53 | Outpatient (REF) | payer OTHER, MEDICARE, SELFPAY | END 2022-04-17 13:54 | disposition home or self-care (01) | LOC: HO.BBR 13:53 | PROVIDERS: Visit Provider Internal Medicine | DX: Z13.89 Encounter for screening for other disorder (principal) ==

== ENCOUNTER 2022-05-15 08:09 | Outpatient (REF) | payer OTHER, SELFPAY ==
--- NOTE | ~2022-05-15 | XR_ITS ---
EXAMINATION: XR HIP, RIGHT CLINICAL INFORMATION: Pain COMPARISON: None TECHNIQUE: Two views of the right hip and one view of the pelvis. FINDINGS: There is mild bilateral hip arthritis. No fracture or dislocation. Bones of the pelvis are normal. There are degenerative changes of the lower lumbar spine. There are surgical clips in the pelvis. XR/XR hip RT w PEL1V IMPRESSION: Mild bilateral hip arthritis.
== END 2022-05-15 08:10 | disposition home or self-care (01) ==
LOC: HO.HOSX 08:09
PROVIDERS: Visit Provider Physician Assistant
DX: S72.111A Displaced fracture of greater trochanter of right femur, initial encounter for closed fracture (principal)
CPT/HCPCS: 73502; 99212

== ENCOUNTER 2022-05-29 08:43 | Outpatient (REF) | payer OTHER, SELFPAY ==
--- NOTE | ~2022-05-29 | XR_ITS ---
EXAMINATION: XR HIP, RIGHT CLINICAL INFORMATION: Hip pain COMPARISON: 05/07/2022 TECHNIQUE: Two views of the right hip. FINDINGS: Mild bilateral hip osteoarthritis, no acute fracture or dislocation of the right hip joint. Pelvic surgical clips are again noted. XR/XR hip RT w PEL1V IMPRESSION: Mild bilateral hip osteoarthritis.
== END 2022-05-29 08:44 | disposition home or self-care (01) ==
LOC: HO.HOSX 08:43
PROVIDERS: Visit Provider Physician Assistant
DX: M25.551 Pain in right hip (principal)
CPT/HCPCS: 73502

== ENCOUNTER → 2022-05-30 13:55 | Outpatient (BNVA) | payer MEDICARE, OTHER, SELFPAY | PROVIDERS: PCP Internal Medicine; Referring Provider Internal Medicine; Visit Provider Internal Medicine Cardiovascular Disease | DX: I48.19 Other persistent atrial fibrillation (principal); I10 Essential (primary) hypertension; Z79.899 Other long term (current) drug therapy | CPT/HCPCS: 93005; 99202 ==

== ENCOUNTER 2022-06-10 11:45 | Emergency (ER) | payer MEDICARE, OTHER, SELFPAY ==
--- NOTE | 2022-06-10 11:46 | ECG_ITS ---
Test Reason : RAPID HR Blood Pressure : / mmHG Vent. Rate : 068 BPM Atrial Rate : 000 BPM P-R Int : 000 ms QRS Dur : 088 ms QT Int : 410 ms P-R-T Axes : 000 -43 023 degrees QTc Int : 435 ms Atrial fibrillation Left axis deviation Inferior infarct (cited on or before 24-JAN-2022) Abnormal ECG When compared with ECG of 24-JAN-2022 12:13, Criteria for Septal infarct are no longer Present Referred By: Generic ED Physician Electronically Signed By:Alfredo Ya
[2022-06-10 11:47] VITALS: BP 149/105; PULSE 70; RESP 20; TEMP 36.4; O2SAT 97; BMI 30.2
--- OUTSIDE RECORDS SUMMARY | 2022-06-10 12:08 | XMS_ITS | Continuity of Care Document ---
:1950 Author Organization [facility] Care Team Providers Name Role Phone DOD-DC Unavailable Unavailable Problems Combined list of problems from Department of Defense and Veterans Affairs facilities. It does not include entries that were removed or entered in error. 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
--- OUTSIDE RECORDS SUMMARY | 2022-06-10 12:16 | XMS_ITS ---
:1950 Author Organization [facility] of [facility] rs Address [address] [place] [address]
[2022-06-10 12:17] LABS: MANUAL DIFF FLAG NO
[2022-06-10 12:18] LABS: Basophils Percent Auto 0.5 % (0-2); Eosinophils Absolute Auto 0.1 X10*3/uL (0.0-0.4); Eosinophils Percent Auto 0.8 % (0-4); Hematocrit 46.4 % (42.0-52.0); Hemoglobin 15.8 g/dl (14.0-18.0); Imm Gran Abs Auto 0.03 X10*3/uL (0.00-0.03); Imm Gran Pct Auto 0.5 % (0.0-0.4); Mean Corpuscular HGB Conc 34.1 g/dl (31.0-36.0); Mean Corpuscular Hemoglobin 32.2 pg (27.0-33.0); Mean Corpuscular Volume 94.5 fL (80.0-98.0); Mean Platelet Volume 10.4 fL (9.4-12.4); Monocytes Absolute Auto 0.6 X10*3/uL (0.1-1.2); Monocytes Percent Auto 9.1 % (2-11); Neutrophils Absolute Auto 4.4 x10*3/uL (2.0-8.3); Neutrophils Percent Auto 73.1 % (45-73); Platelet Count 205 X10*3/uL (160-400); Red Blood Count 4.91 X10*6/uL (4.60-5.80); Red Cell Distribution Width 12.1 % (11.0-16.0); White Blood Count 6.1 X10*3/uL (4.8-10.8)
[2022-06-10 12:25] LABS: INTERNATIONAL NORM RATIO 2.2 (0.9-1.1); Prothrombin Time 26.5 SEC (10.0-13.1)
[2022-06-10 12:30] LABS: COVID-19 Test Negative (Negative); IDNOW Serial# 16C4AD1C
[2022-06-10 12:36] LABS: IDNOW Serial# 9DB6401D; Influenza A Negative (Negative); Influenza B2 Negative (Negative)
--- NOTE | 2022-06-10 12:52 | ED.GENADULT ---
HPI - General Adult General Chief complaint: General Medical Stated complaint: RAPID HEART BEAT Time Seen by Provider: 06/10/22 11:59 Source: patient and family Mode of arrival: ambulatory History of Present Illness HPI narrative: 72-year-old male who presents with his with complaints of ?not feeling well? and states that yesterday he started having diarrhea and noted that it was ?black as night?. Patient denies any fever, chills, nausea, vomiting, shortness of breath but states that this morning he was sitting in his chair and felt like he was having palpitations. He denies any abdominal pain or recent use of antibiotics. In addition, he denies any sick contacts. Related Data Home Medications Medication Instructions Recorded Confirmed carbamazepine 200 mg 200 mg PO BID 04/07/20 05/30/22 capsule,extended release [id number] atenolol 100 mg tablet 100 mg PO DAILY 05/12/20 05/30/22 carbamazepine 400 mg 400 mg PO BEDTIME 05/12/20 05/30/22 tablet,extended release,12 hr lovastatin 40 mg tablet 40 mg PO QPM 05/12/20 05/30/22 warfarin 3 mg tablet 6 mg PO DAILY 05/29/22 05/30/22 codeine sulfate 30 mg tablet 30 mg PO BID PRN 05/30/22 05/30/22 Allergies Allergy/AdvReac Type Severity Reaction Status Date / Time No Known Allergies Allergy Verified 05/29/22 10:39 [No Known Allergies*] Review of Systems Review of Systems: Pertinent positives and negatives as stated in HPI 10 point review of systems is otherwise negative. [facility] Past Medical History Source: nursing notes reviewed Medical History Afib Arthritis Bilateral primary osteoarthritis of knee Elevated cholesterol Frequent headaches Hereditary hemochromatosis History of panic attacks History of skin cancer Hypertension Infection of total knee replacement Peripheral neuropathy Prostate cancer Surgical History History of prostate surgery History of total left knee replacement (TKR) Hx of colonoscopy Hx of left knee surgery Hx of prostatectomy Status post implantation of artificial urinary sphincter Family History Family History Mother No problems noted. Father No problems noted. Social History Social History Household Members: Spouse Housing: House Are you a primary menagerie caretaker to a significant other at home: No Do you presently have visiting nurse or other home services: No Second Hand Smoke Exposure: No Advance Directives: No Advance Directives Information Provided: Yes Advance Directives Date on File: 03/22/20 service: Yes ([employer] [employer] [address]) Current occupational status: retired Physical Exam ED Vital Signs: Vital Signs - 24 hr 06/10/22 11:47 06/10/22 13:44 Temperature 97.6 F Pulse Rate 70 67 Respiratory Rate 20 16 Blood Pressure 149/105 H 144/84 H Pulse Oximetry 97 97 Oxygen Delivery Method Room Air Room Air BMI result Body Mass Index 30.2 VITAL SIGNS: Reviewed. GENERAL: Well developed, well nourished, in no acute distress. HEAD: Normocephalic/atraumatic EYES: PERRLA, EOMI EARS: Ext canals without abnormality OROPHARYNX: no oral lesions noted, posterior pharynx clear LUNGS: Normal breath sounds. No adventitious sounds or accessory muscle use. SpO2<97> CARDIOVASCULAR: Regular rate and rhythm without noted murmurs, no JVD or lower extremity edema. ABDOMEN: Soft, non-tender, non-distended with bowel sounds. EB: Erythematous with noninflamed hemorrhoids, small amount of soft stool in the rectal vault, dark, good rectal tone MUSCULOSKELETAL: No tenderness, deformities, or effusions noted on gross inspection. EXTREMITIES: No cyanosis, clubbing or edema. SKIN: Inspection of the skin reveals no rashes NEUROLOGIC: Alert and oriented x 4. Strength and sensation to light touch were grossly intact x 4. Course Course Course Narrative: Review of all investigations demonstrates no evidence of anemia, leukocytosis, INR is therapeutic, chemistries without electrolyte abnormalities, viral testing is negative, stool guaiac is negative and stool is probably dark secondary to iron use. Patient was informed of all results, reassured and given information regarding dietary choices for resolution of diarrhea he is not nauseous or vomiting neither is he febrile. He is otherwise hemodynamically stable for discharge. Medical Decision Making Medical Decision Making MDM Narrative: 72-year-old male with history and clinical suggestive of possible anxiety but given reports of dark stool will evaluate for viral etiology as well as upper GI bleed. Patient's anal rectal area also appears to be reddened likely secondary to multiple episodes of diarrhea. Lab Data Result Diagrams: 06/10/22 12:10 06/10/22 12:10 Labs: Lab Results 06/10/22 06/10/22 06/10/22 Range/Units 12:10 12:10 12:10 WBC 6.1 (4.8-10.8) X10*3/uL RBC 4.91 (4.60-5.80) X10*6/uL Hgb 15.8 (14.0-18.0) g/dl Hct 46.4 (42.0-52.0) % MCV 94.5 (80.0-98.0) fL MCH 32.2 (27.0-33.0) pg MCHC 34.1 (31.0-36.0) g/dl RDW 12.1 (11.0-16.0) % Plt Count 205 (160-400) X10*3/uL MPV 10.4 (9.4-12.4) fL Immature Gran % (Auto) 0.5 H (0.0-0.4) % Neut % (Auto) 73.1 H (45-73) % Lymph % (Auto) 16.0 L (20-40) % Stafford % (Auto) 9.1 (2-11) % Eos % (Auto) 0.8 (0-4) % Baso % (Auto) 0.5 (0-2) % Lymph # (Auto) 1.0 L (1.2-4.9) X10*3/uL Stafford # (Auto) 0.6 (0.1-1.2) X10*3/uL Eos # (Auto) 0.1 (0.0-0.4) X10*3/uL Baso # (Auto) 0.0 (0.0-0.2) X10*3/uL Abs Immat Gran (auto) 0.03 (0.00-0.03) X10*3/uL Absolute Neuts (auto) 4.4 (2.0-8.3) x10*3/uL Absolute Nucleated RBC 0.000 (0.0-0.012) X10*3/uL Nucleated RBC % (auto) 0.0 (0.0-0.2) /100WBC PT 26.5 H (10.0-13.1) SEC INR 2.2 H (0.9-1.1) Sodium 141 (135-145) mmol/L Potassium 4.3 D (3.3-5.1) mmol/L Chloride 106 (96-108) mmol/L Carbon Dioxide 25 (22-29) mmol/L Anion Gap 14 (12-20) BUN 22 H (9-16) mg/dL Creatinine 0.89 (0.5-1.4) mg/dL Estim Creat Clear Calc 92.0 Estimated GFR > 60 Random Glucose 102 (60-115) mg/dL Calcium 9.4 (8.4-10.2) mg/dL Total Bilirubin 0.5 (0.0-1.0) mg/dL AST 34 (5-37) U/L ALT 35 (0-40) U/L Alkaline Phosphatase 123 H (39-117) U/L Troponin I High Sens (<3.5-35.0) ng/L Total Protein 6.9 (6.5-8.0) g/dL Albumin 4.3 (3.5-5.0) g/dL Stool Occult Blood (NEGATIVE) COVID-19 (TERRY) (Negative) COVID-19 Clin Com Influenza Type A (LIZBET) (Negative) Influenza Type B (LIZBET) (Negative) Influenza A & B Note 06/10/22 06/10/22 06/10/22 Range/Units 12:10 12:10 12:10 WBC (4.8-10.8) X10*3/uL RBC (4.60-5.80) X10*6/uL Hgb (14.0-18.0) g/dl Hct (42.0-52.0) % MCV (80.0-98.0) fL MCH (27.0-33.0) pg MCHC (31.0-36.0) g/dl RDW (11.0-16.0) % Plt Count (160-400) X10*3/uL MPV (9.4-12.4) fL Immature Gran % (Auto) (0.0-0.4) % Neut % (Auto) (45-73) % Lymph % (Auto) (20-40) % Stafford % (Auto) (2-11) % Eos % (Auto) (0-4) % Baso % (Auto) (0-2) % Lymph # (Auto) (1.2-4.9) X10*3/uL Stafford # (Auto) (0.1-1.2) X10*3/uL Eos # (Auto) (0.0-0.4) X10*3/uL Baso # (Auto) (0.0-0.2) X10*3/uL Abs Immat Gran (auto) (0.00-0.03) X10*3/uL Absolute Neuts (auto) (2.0-8.3) x10*3/uL Absolute Nucleated RBC (0.0-0.012) X10*3/uL Nucleated RBC % (auto) (0.0-0.2) /100WBC PT (10.0-13.1) SEC INR (0.9-1.1) Sodium (135-145) mmol/L Potassium (3.3-5.1) mmol/L Chloride (96-108) mmol/L Carbon Dioxide (22-29) mmol/L Anion Gap (12-20) BUN (9-16) mg/dL Creatinine (0.5-1.4) mg/dL Estim Creat Clear Calc Estimated GFR Random Glucose (60-115) mg/dL Calcium (8.4-10.2) mg/dL Total Bilirubin (0.0-1.0) mg/dL AST (5-37) U/L ALT (0-40) U/L Alkaline Phosphatase (39-117) U/L Troponin I High Sens < 3.5 (<3.5-35.0) ng/L Total Protein (6.5-8.0) g/dL Albumin (3.5-5.0) g/dL Stool Occult Blood (NEGATIVE) COVID-19 (TERRY) Negative (Negative) COVID-19 Clin Com See Note Influenza Type A (LIZBET) Negative (Negative) Influenza Type B (LIZBET) Negative (Negative) Influenza A & B Note See Note 06/10/22 Range/Units 13:15 WBC (4.8-10.8) X10*3/uL RBC (4.60-5.80) X10*6/uL Hgb (14.0-18.0) g/dl Hct (42.0-52.0) % MCV (80.0-98.0) fL MCH (27.0-33.0) pg MCHC (31.0-36.0) g/dl RDW (11.0-16.0) % Plt Count (160-400) X10*3/uL MPV (9.4-12.4) fL Immature Gran % (Auto) (0.0-0.4) % Neut % (Auto) (45-73) % Lymph % (Auto) (20-40) % Stafford % (Auto) (2-11) % Eos % (Auto) (0-4) % Baso % (Auto) (0-2) % Lymph # (Auto) (1.2-4.9) X10*3/uL Stafford # (Auto) (0.1-1.2) X10*3/uL Eos # (Auto) (0.0-0.4) X10*3/uL Baso # (Auto) (0.0-0.2) X10*3/uL Abs Immat Gran (auto) (0.00-0.03) X10*3/uL Absolute Neuts (auto) (2.0-8.3) x10*3/uL Absolute Nucleated RBC (0.0-0.012) X10*3/uL Nucleated RBC % (auto) (0.0-0.2) /100WBC PT (10.0-13.1) SEC INR (0.9-1.1) Sodium (135-145) mmol/L Potassium (3.3-5.1) mmol/L Chloride (96-108) mmol/L Carbon Dioxide (22-29) mmol/L Anion Gap (12-20) BUN (9-16) mg/dL Creatinine (0.5-1.4) mg/dL Estim Creat Clear Calc Estimated GFR Random Glucose (60-115) mg/dL Calcium (8.4-10.2) mg/dL Total Bilirubin (0.0-1.0) mg/dL AST (5-37) U/L ALT (0-40) U/L Alkaline Phosphatase (39-117) U/L Troponin I High Sens (<3.5-35.0) ng/L Total Protein (6.5-8.0) g/dL Albumin (3.5-5.0) g/dL Stool Occult Blood NEGATIVE (NEGATIVE) COVID-19 (TERRY) (Negative) COVID-19 Clin Com Influenza Type A (LIZBET) (Negative) Influenza Type B (LIZBET) (Negative) Influenza A & B Note Independent Interpretation I performed an independent interpretation of an: EKG Interpretation: Atrial fibrillation, HR-68, no STEMI, QRS/QTC is otherwise within normal limits. Discharge Plan Discharge Clinical Impression: Heart palpitations, Diarrhea Patient Disposition: Home, Self-Care Instructions: Nutrition Tips for Relief of Diarrhea (ED), Acute Diarrhea (ED), Heart Palpitations (ED) Additional Instructions: 1. Resume all home medications as prescribed. 2. Please review the recommendations for dietary changes to help with your diarrhea symptoms. Continues to stay well hydrated with water. 3. Follow-up with your primary care provider on Sunday morning for re-evaluation and further outpatient management. Return to the ER for worsening symptoms. Prescriptions: No Action atenolol 100 mg Tablet 100 mg PO DAILY carbamazepine 400 mg Tablet Extended Release 12 Hr 400 mg PO BEDTIME lovastatin 40 mg Tablet 40 mg PO QPM carbamazepine 200 mg capsule, ER multiphase 12 hr 200 mg PO BID codeine sulfate 30 mg tablet 30 mg PO BID PRN warfarin 3 mg tablet 6 mg PO DAILY
[2022-06-10 12:59] LABS: Alanine Aminotransferase 35 U/L (0-40); Albumin Level 4.3 g/dL (3.5-5.0); Alkaline Phosphatase 123 U/L (39-117); Anion Gap 14 (12-20); Aspartate Amino Transferase 34 U/L (5-37); Bilirubin Total 0.5 mg/dL (0.0-1.0); Blood Urea Nitrogen 22 mg/dL (9-16); Calcium 9.4 mg/dL (8.4-10.2); Carbon Dioxide 25 mmol/L (22-29); Chloride 106 mmol/L (96-108); Estimated Glomerular Filt Rate > 60; Glucose Random 102 mg/dL (60-115); Potassium 4.3 mmol/L (3.3-5.1); Sodium 141 mmol/L (135-145); Total Protein 6.9 g/dL (6.5-8.0); Troponin-I High Sensitivity < 3.5 ng/L (<3.5-35.0)
[2022-06-10 13:37] LABS: OBS Int Ctl Valid YES; OBS1 NEGATIVE (NEGATIVE)
[2022-06-10 13:44] VITALS: BP 144/84; PULSE 67; RESP 16; O2SAT 97
== END 2022-06-10 14:41 | disposition home or self-care (01) ==
PROVIDERS: Emergency Provider Student in an Organized Health Care Education/Training Program; PCP Pediatrics Pediatric Endocrinology
DX: R00.2 Palpitations (principal); R19.7 Diarrhea, unspecified; Z20.822 Contact with and (suspected) exposure to COVID-19; I48.91 Unspecified atrial fibrillation; E78.5 Hyperlipidemia, unspecified; I10 Essential (primary) hypertension; Z85.46 Personal history of malignant neoplasm of prostate; Z79.01 Long term (current) use of anticoagulants; Z79.02 Long term (current) use of antithrombotics/antiplatelets; Z79.899 Other long term (current) drug therapy
CPT/HCPCS: 36415; 80053; 82272; 84484; 85025; 85610; 87502; 87635; 93005; 99283; 99284

== ENCOUNTER 2022-06-28 12:36 | Outpatient (REF) | payer OTHER, MEDICARE, SELFPAY ==
--- NOTE | ~2022-06-28 | XR_ITS ---
EXAMINATION: XR HIP, RIGHT CLINICAL INFORMATION: Pain in the right hip COMPARISON: None TECHNIQUE: Two views of the right hip. FINDINGS: There is subchondral cystic change crossing the superolateral aspect of the hip joint without definite joint space narrowing detected. The remaining bone and joints visualized are unremarkable. Surgical clips overlie the lower pelvis. XR/XR hip RT min 2V IMPRESSION: Mild osteoarthritis of the right hip.
== END 2022-06-28 12:37 | disposition home or self-care (01) ==
LOC: HO.HOSX 12:36
PROVIDERS: Visit Provider Physician Assistant
DX: S72.111D Displaced fracture of greater trochanter of right femur, subsequent encounter for closed fracture with routine healing (principal)
CPT/HCPCS: 73502

== ENCOUNTER 2022-08-11 08:45 | Outpatient (REF) | payer MEDICARE, OTHER, SELFPAY | END 2022-08-11 08:46 | disposition home or self-care (01) | LOC: HO.BBR 08:45 | PROVIDERS: Visit Provider Internal Medicine | DX: Z13.89 Encounter for screening for other disorder (principal) ==

== ENCOUNTER 2022-09-08 08:52 | Outpatient (REF) | payer OTHER, MEDICARE, SELFPAY | END 2022-09-08 08:53 | disposition home or self-care (01) | LOC: HO.BBR 08:52 | PROVIDERS: Visit Provider Internal Medicine | DX: Z13.89 Encounter for screening for other disorder (principal) ==

== ENCOUNTER → 2022-10-10 14:12 | Outpatient (BNVA) | payer OTHER, MEDICARE, SELFPAY | PROVIDERS: PCP Internal Medicine; Referring Provider Internal Medicine; Visit Provider Internal Medicine Cardiovascular Disease | DX: I48.19 Other persistent atrial fibrillation (principal); I10 Essential (primary) hypertension | CPT/HCPCS: 93005; 99212 ==

== ENCOUNTER 2022-10-13 09:09 | Outpatient (REF) | payer OTHER, MEDICARE, SELFPAY | END 2022-10-13 09:10 | disposition home or self-care (01) | LOC: HO.BBR 09:09 | PROVIDERS: Visit Provider Internal Medicine | DX: Z13.89 Encounter for screening for other disorder (principal) ==

== ENCOUNTER → 2022-10-27 12:47 | Outpatient (REF) | payer OTHER, MEDICARE, SELFPAY ==
--- NOTE | 2022-10-27 12:50 | CA_ITS ---
Transthoracic Echocardiogram Patient (Last, First, Middle): Riley Johnson J Gender: Male Date of : 1950 Age: 72 Procedure Date: 10/27/2022 Procedure Type: Transthoracic Echocardiogram Location: OP Height: 185.42 cm Weight: 107.5 kg BSA: 2.31 m2 Heart Rate: 71 bpm BP: 140 / 82 mmHg Millinery Copyist: SB Referring MD: Santiago Shane MD Symptoms: I48.19 - Other persistent atrial fibrillation Study Quality: Adequate ECG Rhythm: Atrial Fibrillation Conclusions: - The left ventricular systolic function is normal. The calculated ejection fraction is 55% by biplane method. - There is moderate septal and moderate basal asymmetric hypertrophy. - There is moderate calcification of the aortic valve. Findings Left Ventricle Normal left ventricular cavity size. The left ventricular systolic function is normal. The calculated ejection fraction is 55% by biplane method. There is no evidence of regional wall motion abnormalities. Diastolic function is indeterminate on the basis of available data. There is moderate septal and moderate basal asymmetric hypertrophy. Right Ventricle Normal right ventricular cavity size and systolic function. Atria Mild biatrial enlargement. Aortic Valve There is moderate calcification of the aortic valve. There is no aortic valve stenosis. There is no aortic valve regurgitation. Mitral Valve The mitral valve appears normal. There is trace mitral valve regurgitation. There is no mitral valve stenosis. Pulmonic Valve The pulmonic valve is likely normal. Tricuspid Valve Normal tricuspid valve structure. There is trace tricuspid valve regurgitation. There is no evidence of pulmonary hypertension. Great Vessels The asc aorta is normal in size. Venous The inferior vena cava is normal in size and collapses less than 50% with inspiration. Pericardium/Pleural There is no evidence of pericardial effusion. Prior Study Comparison No prior study available for comparison. Measurements 2D Linear Measurements IVSd: 1.12 0.6-0.9/0.6-1.0 cm LVIDd: 5.16 3.9-5.3/4.2-5.9 cm LVIDd Index: 2.23 2.4-3.2/2.2-3.1 cm/m2 LVIDs: 3.36 2.0-3.6 cm LVPWd: 0.64 0.7-1.1 cm LA Diam: 5.10 2.7-3.8/3.0-4.0 cm LAIDs Index: 2.21 1.5-2.3 cm/m2 LV Mass: 201.89 67-162/88-224 g LV Mass Index: 87.40 43-95/49-115 g/m2 LVOT Diam: 2.40 3.0+(-)1.3 cm 2D Systolic Function EF 4C: 57.60 >55% EF 2C: 52.20 >55% EF BiP: 54.70 >55% Mitral Valve MV Pk E: 1.15 MV Decel Time: 196.00 Aortic Valve AoV Pk Tay: 1.41 AoV Pk Grad: 8.00 ALLISON: 3.10 LVOT LVOT Pk Tay: 0.97 LVOT Mn Tay: 0.59 LVOT VTI: 0.19 LVOT Pk Grad: 4.00 LVOT Mn Grad: 2.00 LVOT Diam: 2.40 LVOT Area: 4.52 Diastolic Function MV Pk E: 1.15 Right Ventricle TAPSE (mm): 24.00 TVS' Tay: 13.30 Tricuspid Valve TR Pk Tay: 2.73 TR Pk Grad: 30.00 RA Press: 8.00 RVSP: 38.00 Great Vessels Aorta Sinus of Valsalva: 3.90 2.0-3.5 cm Ao Asc: 3.80 2.1-3.4 cm Pulmonary Valve PV Pk Tay: 0.74 Peak PV Grad: 2.00 Updated in Other Vendor System with Status of Final Yung Morales MD electronically signed on 10/29/2022 9:14:18 AM with status of Final
== END ==
LOC: HO.CARD 12:47
PROVIDERS: PCP Internal Medicine; Visit Provider Internal Medicine Cardiovascular Disease
DX: I48.19 Other persistent atrial fibrillation (principal)
CPT/HCPCS: 93306

== ENCOUNTER 2022-11-17 13:54 | Outpatient (REF) | payer OTHER, MEDICARE, SELFPAY | END 2022-11-17 13:55 | disposition home or self-care (01) | LOC: HO.BBR 13:54 | PROVIDERS: PCP Internal Medicine; Visit Provider Internal Medicine | DX: Z13.89 Encounter for screening for other disorder (principal) ==

== ENCOUNTER → 2022-11-23 07:26 | Outpatient (REF) | payer OTHER, SELFPAY ==
--- NOTE | ~2022-11-23 | NM_ITS ---
Myocardial perfusion study Indication: Persistent atrial fibrillation to evaluate for myocardial ischemia Technique: The patient was brought in for a Lexiscan perfusion study on 11/23/2022. Patient performed low-level exercise and was injected 0.4 mg of Lexiscan intravenously. Within a minute of injection, 35 mCi of sestamibi was given intravenously. Images were obtained using the SPECT gamma camera interlaced with the gating device. Images were obtained in supine position. Resting perfusion study was performed on 11/24/2022. Patient was administered 30 mCi of sestamibi intravenously at rest. Images were then obtained in supine position. Images obtained with and without CT attenuation. Total DLP 114 mGy-cm. Images were processed with the software and compared side to side in short axis, horizontal long axis and vertical long axis views. Findings: The stress perfusion study showed non attenuated images show mildly reduced uptake in the basal lateral as well as basal and mid inferior wall of the LV myocardium.. Non attenuated corrected images show mildly reduced uptake in the apex of the LV myocardium.. The gated study shows normal LV systolic function with calculated LVEF of 74%. LV cavity is normal in size. The gated study shows normal systolic wall thickening and contraction of segments. Resting study shows no change in perfusion pattern compared to stress perfusion study. Gating at rest reveals normal systolic wall motion with ejection fraction at greater than 70%. The findings are consistent with normal myocardial perfusion. NM/NM paul perf SPECT rest & str Impression: 1. Myocardial perfusion imaging study shows normal myocardial perfusion 2. Gated LVEF is 74% 3. Transient ischemic dilatation not present EKG nondiagnostic for ischemia
--- NOTE | 2022-11-23 07:29 | CA_ITS ---
Acquisition Time: 2022-11-23 08:04:42 Total Exercise Time: 00:02:00 Test Indications: AFIB Medications: SEE H Protocol: LEXISCAN Max HR: 096 BPM 65% of Pred: 146 BPM Max BP: 140/088 mmHG Max Work Load: 1.0 METS Pharmacological stress test with Lexiscan injection while sitting and kicking his legs, without anginal symptoms, without arrhythmias, with normotensive response to injection, without EKG changes. Aminophylline 75mg IVP given to reverse Lexiscan. Nuclear images pending. Text reviewed with Dr. Ya. Referred By: Santiago Shane Overread By: DORINDA ROA
== END ==
LOC: HO.CARD 07:26
PROVIDERS: PCP Internal Medicine; Visit Provider Internal Medicine Cardiovascular Disease
DX: I48.19 Other persistent atrial fibrillation (principal)
CPT/HCPCS: 78452; 93017; A9500; J0280; J2785

== ENCOUNTER 2022-12-21 14:33 | Outpatient (REF) | payer OTHER, SELFPAY | END 2022-12-21 14:34 | disposition home or self-care (01) | LOC: HO.BBR 14:33 | PROVIDERS: Visit Provider Internal Medicine | DX: Z13.89 Encounter for screening for other disorder (principal) ==

== ENCOUNTER 2023-01-23 13:44 | Outpatient (REF) | payer OTHER, SELFPAY ==
[2023-01-23 16:18] LABS: Ferritin 23 ng/mL (20-250)
== END 2023-01-23 13:45 | disposition home or self-care (01) ==
LOC: HO.BBR 13:44
PROVIDERS: Visit Provider Internal Medicine
DX: E83.110 Hereditary hemochromatosis (principal)
CPT/HCPCS: 36415; 82728

== ENCOUNTER 2023-03-07 13:47 | Outpatient (REF) | payer OTHER, SELFPAY ==
[2023-03-07 17:05] LABS: Ferritin 29 ng/mL (20-250)
== END 2023-03-07 13:48 | disposition home or self-care (01) ==
LOC: HO.BBR 13:47
PROVIDERS: PCP Internal Medicine; Visit Provider Internal Medicine
DX: E83.110 Hereditary hemochromatosis (principal)
CPT/HCPCS: 36415; 82728

== ENCOUNTER 2023-04-11 13:36 | Outpatient (REF) | payer OTHER, SELFPAY | END 2023-04-11 13:37 | disposition home or self-care (01) | LOC: HO.BBR 13:36 | PROVIDERS: PCP Internal Medicine; Visit Provider Internal Medicine | DX: Z13.89 Encounter for screening for other disorder (principal) ==

== ENCOUNTER 2023-04-17 14:08 | Outpatient (AMB) | payer OTHER, SELFPAY ==
[2023-04-17 14:11] VITALS: BP 130/74; PULSE 66; BMI 31.1
--- NOTE | 2023-04-17 14:11 | MHC.OFFVIS ---
Intake Vital Signs 04/17/23 14:11 Height 6 ft 1 in Weight 235 lb 14.314 oz BMI 31.1 BP 130/74 Blood Pressure Location Lt brachial Position Sitting Pulse 66 Intake Visit Reasons: 6 mth f/up echo/ mibi Intake Note: 6 month follow-up stress and echo results feeling good Piano Sounding Board Matcher: Piano Sounding Board Matcher Present Accompanied by: Spouse Allergies No Known Allergies [No Known Allergies*] Allergy (Verified 06/28/22 13:11) Medication List - Last Reconciled 04/17/23 by Santiago Shane MD atenolol 100 mg PO DAILY carbamazepine ER 400 mg PO BEDTIME carbamazepine ER 200 mg PO BID codeine sulfate 30 mg PO BID PRN rosuvastatin 20 mg PO DAILY warfarin 6 mg PO DAILY HPI HPI Comments History of Present Illness Details Riley comes for follow-up. No new symptoms. His myocardial perfusion imaging is within normal limits. Echocardiogram shows normal LV ejection fraction with basal hypertrophy. Denies any heart failure symptoms. Denies any changes exercise capacity. No palpitation irregular heartbeat. No bleeding issues or neurologic events. [facility] Medical History Afib Peripheral neuropathy History of panic attacks History of skin cancer Frequent headaches Arthritis Prostate cancer Hereditary hemochromatosis Elevated cholesterol Hypertension Infection of total knee replacement Bilateral primary osteoarthritis of knee Surgical History Hx of left knee surgery History of total left knee replacement (TKR) Hx of colonoscopy Hx of prostatectomy Status post implantation of artificial urinary sphincter History of prostate surgery Family History Mother No problems noted. Father No problems noted. Social History Household Members: Spouse Housing: House Are you a primary personal care service provider to a significant other at home: No Do you presently have visiting nurse or other home services: No Second Hand Smoke Exposure: No Advance Directives Date on File: 03/22/20 service: Yes ([employer], [employer] HOURS/[employer] [address]) Current occupational status: retired Review of Systems Const Denies chills, Denies fatigue, Denies fever(s), Denies frequent falls, Denies weakness, Denies weight gain and Denies weight loss ENT Denies dizziness Card Denies chest pain, Denies leg edema, Denies lightheadedness, Denies palpitations, Denies dyspnea, Denies dyspnea on exertion, Denies orthopnea and Denies other (loss of consciousness) Resp Denies cough, Denies dyspnea and Denies dyspnea on exertion GI Denies hematochezia and Denies change in stool character Musc Denies abnormal gait, Denies muscle weakness, Denies numbness, Denies radiating pain into limb and Denies tingling Neuro Denies Abnormal speech present, Denies abnormal gait, Denies dizziness, Denies frequent falls, Denies numbness, Denies tingling and Denies weakness Endo Denies fatigue and Denies palpitations Physical Exam Vital Signs: Last Vital Signs Pulse 66 04/17/23 14:11 BP 130/74 04/17/23 14:11 BMI result Body Mass Index 31.1 Const General: cooperative, comfortable, no acute distress, alert and awake Nutritional Appearance: overweight Orientation/consciousness: patient oriented x3 Limitations: ambulation with cane HEENT Head: Yes normocephalic and Yes atraumatic Neck Neck: Yes trachea midline, Yes supple and Yes no JVD Resp Effort & Inspection: normal respiratory effort Auscultation: clear to auscultation bilaterally Cardio Jugular venous distension: no JVD Palpation: normal PMI Rate: regular rate Rhythm: abnormal rhythm irregularly irregular Heart sounds: S1 normal heart sound present, S2 normal heart sound present, no click, no gallops, no murmurs and no rubs GI Auscultation: normal bowel sounds Skin General skin exam: no rashes or lesions noted Neuro General: patient oriented x3 and no focal motor deficits Speech: No Abnormal speech present Extrem General: Yes no clubbing, cyanosis or edema Assessment & Plan Assessment & Plan (1) Persistent atrial fibrillation: Code(s): I48.19 - Other persistent atrial fibrillation Plan: Persistent rate control atrial fibrillation without any overt symptoms or signs of heart failure. He is doing well with rate control approach. He has mild biatrial enlargement. We discussed about rate control versus rhythm control approach. Given asymptomatic nature in good functional status will pursue rate control approach with this was discussed with him. Continue full oral anticoagulation, can only be in warfarin therapy given his use of carbamazepine. Being followed by [facility]. Maintain target INR between 2 and 3. (2) Hypertension: Code(s): I10 - Essential (primary) hypertension Plan: Hypertension with mild basal segment hypertrophy. No signs or symptoms of heart failure. Continue aggressive blood pressure control. Low-salt diet was discussed advised to monitor blood pressure at home maintain a log. Goal blood pressure less than 130/84. Advised to maintain heart healthy lifestyle. Follow up in the clinic in 1 year's time, sooner p.r.n.. Thank you for allowing me to partake in his care Coding Level of Care Code Est Pt Level 4 (60772) Diagnoses Persistent atrial fibrillation I48.19 Hypertension I10
== END 2023-04-17 14:49 | disposition home or self-care (01) ==
PROVIDERS: PCP Internal Medicine; Visit Provider Internal Medicine Cardiovascular Disease
DX: I48.19 Other persistent atrial fibrillation (principal); I10 Essential (primary) hypertension
CPT/HCPCS: 99214

== ENCOUNTER → 2023-04-17 14:08 | Outpatient (BNVA) | payer OTHER, SELFPAY | PROVIDERS: PCP Internal Medicine; Visit Provider Internal Medicine Cardiovascular Disease | DX: I48.19 Other persistent atrial fibrillation (principal); I10 Essential (primary) hypertension | CPT/HCPCS: 99212 ==

== ENCOUNTER 2023-05-14 14:43 | Outpatient (REF) | payer OTHER, SELFPAY | END 2023-05-14 14:44 | disposition home or self-care (01) | LOC: HO.BBR 14:43 | PROVIDERS: PCP Internal Medicine; Visit Provider Internal Medicine | DX: Z13.89 Encounter for screening for other disorder (principal) ==

== ENCOUNTER 2023-06-08 09:41 | Outpatient (REF) | payer OTHER, SELFPAY | END 2023-06-08 09:42 | disposition home or self-care (01) | LOC: HO.BBR 09:41 | PROVIDERS: PCP Internal Medicine; Visit Provider Internal Medicine | DX: Z13.89 Encounter for screening for other disorder (principal) ==

== ENCOUNTER 2023-07-16 13:49 | Outpatient (REF) | payer OTHER, SELFPAY | END 2023-07-16 13:50 | disposition home or self-care (01) | LOC: HO.BBR 13:49 | PROVIDERS: PCP Internal Medicine; Visit Provider Internal Medicine | DX: Z13.89 Encounter for screening for other disorder (principal) ==

== ENCOUNTER 2023-08-16 14:52 | Outpatient (REF) | payer OTHER, SELFPAY | END 2023-08-16 14:53 | disposition home or self-care (01) | LOC: HO.BBR 14:52 | PROVIDERS: PCP Internal Medicine; Visit Provider Internal Medicine | DX: Z13.89 Encounter for screening for other disorder (principal) ==

== ENCOUNTER 2023-09-13 12:55 | Outpatient (REF) | payer OTHER, SELFPAY | END 2023-09-13 12:56 | disposition home or self-care (01) | LOC: HO.BBR 12:55 | PROVIDERS: PCP Internal Medicine; Visit Provider Internal Medicine | DX: Z13.89 Encounter for screening for other disorder (principal) ==

== ENCOUNTER 2023-10-12 13:01 | Outpatient (REF) | payer OTHER, SELFPAY | END 2023-10-12 13:02 | disposition home or self-care (01) | LOC: HO.BBR 13:01 | PROVIDERS: PCP Internal Medicine; Visit Provider Internal Medicine | DX: Z13.89 Encounter for screening for other disorder (principal) ==

== ENCOUNTER 2023-11-13 12:31 | Outpatient (REF) | payer OTHER, SELFPAY | END 2023-11-13 12:32 | disposition home or self-care (01) | LOC: HO.BBR 12:31 | PROVIDERS: Visit Provider Internal Medicine | DX: Z13.89 Encounter for screening for other disorder (principal) ==

== ENCOUNTER 2023-12-11 12:50 | Outpatient (REF) | payer OTHER, SELFPAY | END 2023-12-11 12:51 | disposition home or self-care (01) | LOC: HO.BBR 12:50 | PROVIDERS: Visit Provider Internal Medicine | DX: Z13.89 Encounter for screening for other disorder (principal) ==

== ENCOUNTER 2024-01-09 13:06 | Outpatient (REF) | payer OTHER, SELFPAY | END 2024-01-09 13:07 | disposition home or self-care (01) | LOC: HO.BBR 13:06 | PROVIDERS: PCP Internal Medicine; Visit Provider Internal Medicine | DX: Z13.89 Encounter for screening for other disorder (principal) ==

== ENCOUNTER 2024-02-13 13:45 | Outpatient (REF) | payer OTHER, SELFPAY | END 2024-02-13 13:46 | disposition home or self-care (01) | LOC: HO.BBR 13:45 | PROVIDERS: PCP Internal Medicine; Visit Provider Internal Medicine | DX: Z13.89 Encounter for screening for other disorder (principal) ==

== ENCOUNTER 2024-03-25 13:51 | Outpatient (REF) | payer OTHER, SELFPAY | END 2024-03-25 13:52 | disposition home or self-care (01) | LOC: HO.BBR 13:51 | PROVIDERS: PCP Internal Medicine; Visit Provider Internal Medicine | DX: Z13.89 Encounter for screening for other disorder (principal) ==

== ENCOUNTER 2024-04-30 13:49 | Outpatient (REF) | payer OTHER, SELFPAY | END 2024-04-30 13:50 | disposition home or self-care (01) | LOC: HO.BBR 13:49 | PROVIDERS: PCP Internal Medicine; Visit Provider Internal Medicine | DX: Z13.89 Encounter for screening for other disorder (principal) ==

== ENCOUNTER 2024-06-12 14:24 | Outpatient (AMB) | payer OTHER, SELFPAY ==
--- NOTE | 2024-06-12 14:33 | MHC.OFFVIS ---
Vital Signs 06/12/24 14:34 Height 6 ft 1 in Weight 240 lb 4.862 oz BMI 31.7 BP 128/68 Blood Pressure Location Lt brachial Position Sitting Pulse 52 Pulse Source Monitor Intake Visit Reasons: 1 yr f/up Allergies No Known Allergies [No Known Allergies*] Allergy (Verified 06/28/22 13:11) Medication List - Last Reconciled 06/12/24 by Santiago Shane MD atenolol 100 mg PO DAILY carbamazepine ER 400 mg PO BEDTIME carbamazepine ER 200 mg PO BID rosuvastatin 20 mg PO DAILY valsartan 160 mg PO DAILY warfarin 10 mg PO DAILY HPI Comments Details: Riley comes for follow-up. He has been doing very well from cardiac perspective. Recently his valsartan was added and increased due to continued persistently elevated blood pressure. Blood pressures since then has remained generally well controlled. He denied any symptoms. Denies any exertional chest pain or shortness of breath. No orthopnea, PND, leg edema. No prolonged palpitation irregular heartbeat. Currently taking warfarin with well optimized INR being followed by [facility] in [place]. No bleeding issues or neurologic events. [facility] Medical History Afib Peripheral neuropathy History of panic attacks History of skin cancer Frequent headaches Arthritis Prostate cancer Hereditary hemochromatosis Elevated cholesterol Hypertension Infection of total knee replacement Bilateral primary osteoarthritis of knee Surgical History Hx of left knee surgery History of total left knee replacement (TKR) Hx of colonoscopy Hx of prostatectomy Status post implantation of artificial urinary sphincter History of prostate surgery Family History Mother No problems noted. Father No problems noted. Social History Household Members: Spouse Housing: House Are you a primary long term care social worker to a significant other at home: No Do you presently have visiting nurse or other home services: No Comment: sleeping Second Hand Smoke Exposure: No Advance Directives Date on File: 03/22/20 service: Yes ([facility], AFTER HOURS/[employer] [address]) Current occupational status: retired Review of Systems Const Denies weakness ENT Denies dizziness Card Denies chest pain, Denies chest pain with activity, Denies syncope, Denies rapid heart rate, Denies pedal edema, Denies edema, Denies leg edema, Denies lightheadedness, Denies palpitations, Denies dyspnea, Denies dyspnea on exertion and Denies orthopnea Resp Denies cough, Denies dyspnea and Denies dyspnea on exertion GI Denies hematochezia and Denies change in stool character Musc Denies abnormal gait, Denies muscle cramps, Denies muscle weakness, Denies numbness, Denies radiating pain into limb and Denies tingling Neuro Denies Abnormal speech present, Denies abnormal gait, Denies dizziness, Denies syncope, Denies numbness, Denies tingling and Denies weakness Endo Denies palpitations Physical Exam Vital Signs: Last Vital Signs Pulse 52 06/12/24 14:34 BP 128/68 06/12/24 14:34 BMI result Body Mass Index 31.7 Const General: cooperative, comfortable, no acute distress, alert and awake Nutritional Appearance: overweight Orientation/consciousness: patient oriented x3 Limitations: ambulation with cane HEENT Head: Yes normocephalic and Yes atraumatic Neck Neck: Yes trachea midline, Yes supple and Yes no JVD Resp Effort & Inspection: normal respiratory effort Auscultation: clear to auscultation bilaterally Cardio Jugular venous distension: no JVD Palpation: normal PMI Rate: regular rate Rhythm: abnormal rhythm irregularly irregular Heart sounds: S1 normal heart sound present, S2 normal heart sound present, no click, no gallops, no murmurs and no rubs GI Auscultation: normal bowel sounds Skin General skin exam: no rashes or lesions noted Neuro General: patient oriented x3 and no focal motor deficits Speech: No Abnormal speech present Extrem General: Yes no clubbing, cyanosis or edema Office Procedures EKG Details: EKG shows atrial fibrillation with slow ventricular response at 52 beats per minute [id number], Complete Assessment & Plan Assessment & Plan (1) Persistent atrial fibrillation: Code(s): I48.19 - Other persistent atrial fibrillation Category: Medical Plan: Persistent rate control atrial fibrillation with low rate on current atenolol therapy. Having no symptoms related to it. Remains without any signs of cardiac decompensation. Will continue rate control strategy. Continue full oral anticoagulation, currently on warfarin. Target INR between 2 and 3 [facility]. Can not be on direct oral anticoagulant therapy due to his carbamazepine therapy. (2) Hypertension: Code(s): I10 - Essential (primary) hypertension Category: Medical Plan: Hypertension not well optimized on current therapy. Continue valsartan atenolol therapy. Importance of good blood pressure control was discussed. Target goal blood pressure mostly below 130/84. Low-salt diet was discussed advised to maintain activity level as tolerated. Will follow up in the clinic in 1 year's time after an echocardiogram. Thank you for allowing me to partake in his care Orders: Orders CA echo transthoracic complete 1 Year I48.19 - Other persistent atrial fibrillation Coding Level of Care Code Est Pt Level 4 (66756) Complex EM visit Add On G2211 Diagnoses Persistent atrial fibrillation I48.19 Hypertension I10 CPT Codes EKG - CPT: 29989-[id number], Complete ([id number])
[2024-06-12 14:34] VITALS: BP 128/68; PULSE 52; BMI 31.7
== END 2024-06-12 15:08 | disposition home or self-care (01) ==
PROVIDERS: PCP Internal Medicine; Visit Provider Internal Medicine Cardiovascular Disease
DX: I48.19 Other persistent atrial fibrillation (principal); I10 Essential (primary) hypertension
CPT/HCPCS: 93010; 99214; G2211

== ENCOUNTER → 2024-06-12 14:24 | Outpatient (BNVA) | payer OTHER, SELFPAY | PROVIDERS: PCP Internal Medicine; Visit Provider Internal Medicine Cardiovascular Disease | DX: I48.19 Other persistent atrial fibrillation (principal); I10 Essential (primary) hypertension | CPT/HCPCS: 93005; 99212 ==

== ENCOUNTER 2025-03-09 13:48 | Outpatient (REF) | payer OTHER, SELFPAY | END 2025-03-09 13:49 | disposition home or self-care (01) | LOC: HO.BBR 13:48 | PROVIDERS: Visit Provider Internal Medicine | DX: Z13.89 Encounter for screening for other disorder (principal) ==

== ENCOUNTER 2025-04-08 13:38 | Outpatient (REF) | payer OTHER, SELFPAY | END 2025-04-08 13:39 | disposition home or self-care (01) | LOC: HO.BBR 13:38 | PROVIDERS: Visit Provider Internal Medicine | DX: Z13.89 Encounter for screening for other disorder (principal) ==